=== PATIENT | female | born 1980 | race African-American/Black ===

== ENCOUNTER 2019-10-13 13:51 | Inpatient (IN) | payer SELFPAY ==
[~2019-10-13] VITALS: Ht 172.7 cm; Wt 96.4 kg
--- NOTE | ~2019-10-13 | OP ---
PATIENT NAME: MARIO ALBERTO IQBAL MEDICAL RECORD: [id number] :84 LOCATION:D.M2 D.2126 ADMISSION DATE:10/13/19 SURGEON: SUYAPA MARRUFO MD DATE OF OPERATION: 10/14/2019 PROCEDURES: 1. PTCA stent LAD. 2. PTCA stent RCA. 3. IFR LAD. 4. Left heart catheterization. 5. Selective coronary angiography. 6. Left ventriculogram. INDICATION: Non-Q-wave myocardial infarction. PROCEDURE IN DETAIL: After informed consent was obtained and after detailed explanation of risks, benefits as well as alternative therapies, the patient elected to proceed with angiogram and angioplasty. The right femoral area was prepped and draped in normal sterile fashion. Right femoral artery was cannulated via modified Seldinger technique with placement of 6-Eritrean sheath. All catheters exchanged through this sheath. FINDINGS: Left ventriculogram was performed in standard 30-degree JONES view, reveals good cardiac wall motion, ejection fraction is 30%. SELECTIVE CORONARY ANGIOGRAPHY: 1. Left main is with no significant angiographic disease. 2. Left anterior descending has 80% stenosis at the proximal vessel. An IFR is abnormal. 3. Left circumflex has moderate irregularities, but no flow-limiting stenosis. 4. Right coronary artery has 90% to 95% stenosis in the mid vessel. PTCA STENT OF THE RCA: The stent used was 3.0 x 15 mm [place]. Result was 0% residual stenosis. TOLL LINE REPAIRER STENT OF THE LAD: The stent used was a 3.0 x 8 mm [place]. Result was 0% residual stenosis. OVERALL IMPRESSION: Successful percutaneous transluminal angioplasty stent of LAD and RCA, both going from 80% to 95% initial stenosis to 0% residual. TRANSINT:[id number] Voice Confirmation ID: [id number] DOCUMENT ID: [id number] SUYAPA MARRUFO MD CC: [id number] DICTATION DATE: 10/14/19 1624 MARKET RESEARCH SPECIALIST: 10/15/19 0232 DIS IN 10/14/19 [id number] [place] [address]
--- NOTE | ~2019-10-13 | EC ---
PATIENT:MARIO ALBERTO IBQAL DATE OF SERVICE: 10/13/19 SEX: F MEDICAL RECORD: [id number] DATE OF : 84 LOCATION:D. D.212 AGE OF PATIENT: 39 ADMISSION DATE: 10/13/19 REFERRING PHYSICIAN: INTERPRETING PHYSICIAN: SUYAPA COLIN MD ECHOCARDIOGRAM REPORT ECHO CHARGES 4 ECHO COMPLETE Date: 10/14/19 CLINICAL DIAGNOSIS: [place] ECHOCARDIOGRAPHIC MEASUREMENTS (adult normal given) AC root (d.<3.7cm) 2.8 cm LV Septum d (<1.2 cm> 1.4 cm Valve Excursion 1.3 cm LV Septum (systole) 1.5 cm Left Atria (s.<4.0cm> 4.7 cm LVPW d(<1.2cm) 1.7 cm RV (d.<2.3cm) 3.3 cm LVPW (sytole) 1.8 cm LV diastole(<5.6CM) 4.9 cm MV E-F(>70mm/sec) cm LV systole 3.7 cm LVOT Diameter 2.0 cm MV exc.(>10mm) 1.9 cm Est.ejection fraction (50-75%) % DOPPLER: LVIT cm/sec A 121.0cm/sec E cm/sec LA cm/sec RVSP 23 mmHg LVOT 97 cm/sec AOP1/2T m/s Asc. Ao 136 cm/sec RVOT 75 cm/sec RA cm/sec PA 108 cm/sec AV Gradient Peak 7.42 mmHg AV Mean 4.13 mmHg AV Area 2.2 cm MV Gradient Peak 8.62 mmHg MV Mean 2.90 mmHg MV Area cm COMMENTS: Catering Manager: Milan MIR Latent Fingerprint Examiner: 1 Dr. Colin TAPE# PACS Pericardial Effusion N DATE OF SERVICE: ECHOCARDIOGRAM FINDINGS: 1. Left ventricular chamber size is within normal limits. Left ventricular systolic function is normal. Overall ejection fraction estimated at 50-55%. 2. Left atrium is enlarged at 4.7 cm. Right atrium and right ventricular chamber sizes are as well mildly dilated. 3. Valvular structures have normal structure and motion. ECHOCARDIOGRAM REPORT [id number] MARIO ALBERTO IQBAL 4. Doppler interrogation reveals [id number] mitral regurgitation, mild tricuspid regurgitation, no other valvular insufficiency or stenosis. Pulmonary systolic pressure estimated at 23 mmHg. 5. No evidence of pericardial effusion or left ventricular thrombus. TRANSINT:[id number] Voice Confirmation ID: [id number] DOCUMENT ID: [id number] SUYAPA COLIN MD CC: [id number] DICTATION DATE: 10/14/19 1158 RAYON WINDER: 10/14/19 1601 ADM IN [facility] [address] [place] [address]
--- NOTE | ~2019-10-13 | DS ---
PATIENT:MARIO ALBERTO LOERA :84 MEDICAL RECORD: [id number] DISCHARGE SUMMARY ADMISSION DATE: 10/13/19 DISCHARGE DATE: 10/14/19 DATE OF DISCHARGE: 10/14/2019. DIAGNOSES: 1. Non-Q-wave myocardial infarction. 2. Coronary artery disease. 3. Percutaneous transluminal coronary angioplasty stent left anterior descending and right coronary artery this admission. 4. Hypertension. 5. Hyperlipidemia. HOSPITAL COURSE: Mrs. Loera presents with non-Q-wave myocardial infarction, found to have critical disease of the RCA and significant disease of the LAD, underwent successful PTCA stent of both territories, found also to be markedly hypertensive, was started on diltiazem 240 mg every day and Toprol ER 200 mg every day along with aspirin, Plavix and Pravachol. Will follow up with [facility] in [facility] month. TRANSINT:[id number] Voice Confirmation ID: [id number] DOCUMENT ID: [id number] SUYAPA MARRUFO MD CC: [id number] DICTATION DATE: 10/14/19 1625 REFINERY OPERATOR REFORMING UNIT: 10/15/19 0810 DIS IN 10/14/19 [facility] [address] [place] [address]
--- NOTE | ~2019-10-13 | HEMODYNAMI ---
PATIENT:MARIO ALBERTO IQBAL MEDICAL RECORD: [id number] : 84 LOCATION[facility] D.2126 [id number] ADMISSION DATE: 10/13/19 Generatedon:10/14/201913:11 Patient name: MARIO ALBERTO IQBAL Patient #: [id number] SSN: : 1980 Date of study: 10/14/2019 Page: Of Hemodynamic Procedure Report Patient Data Patient Demographics Procedure consent was obtained First Name: MARIO ALBERTO Gender: Female Last Name: FARIDA : 1980 Middle Initial: MANOJ Age: 39 year(s) Patient #: [id number] Race: Black Additional ID: [id number] Contact details [address]: [address] [place] [address] State: [place] City: [place] Zip code: [address] Past Medical History Allergies: No known allergies Admission Admission Data Admission Date: 10/13/2019 Admission Time: 17:47 Admit Source: Other Room #: D.2126 Lab Results Lab Result Date: 10/14/2019 Lab Result Time: 0:00 Biochemistry Name Units Result Min Max BUN mg/dl 14 --(--*-)-- 7 18 Creatinine mg/dl 0.7 --(*---)-- 0.6 1.3 CBC Name Units Result Min Max Hemoglobin g/dl 10.2 *-(----)-- 13.5 17.5 Procedure Procedure Types Cath Procedure Diagnostic Procedure LHC LHC w/Coronaries FFR/IVUS FFR Initial Sedation Charges Moderate Sedation up to 15 minutes PCI Procedure Coronary Stent Coronary Stent Initial x2 Procedure Description Procedure Date Procedure Date: 10/14/2019 Procedure Start Time: 12:43 Procedure End Time: 13:04 Procedure Staff Name Function Fabrizio Colin MD Performing Physician Starr May RN Nurse Nellie Shipman RT Scrub Benjamin Waller RT Monitor Nabeel Esqueda RN Truss Driver Helper Procedure Data Cath Procedure Fluoroscopy Diagnostic fluoroscopy Total fluoroscopy Time: 4.8 time: 4.8 min min Diagnostic fluoroscopy Total fluoroscopy dose: dose: 531.34 mGy 531.34 mGy Contrast Material Contrast Material Type Amount (ml) Isovue 370 136 Entry Location Entry Primary Successful Side Size Upsize Upsize Entry Closure Succes sful Closure Location (Fr) 1 (Fr) 2 (Fr) Remarks Device Remarks Femoral Right 5 Fr 6 Fr Exoseal artery Short Diagnostic catheters Device Type Used For End Catheter Placement MULTIPACK Pigtail 5 Fr LV Angiography catheter MULTIPACK JL 4.0 5Fr Left Coronary catheter Angiography MULTIPACK 3DRC 5Fr Right Coronary catheter Angiography Procedure Complications No complications Procedure Medications Medication Administration Route Dosage Oxygen etCO2 Nasal cannula 2 l/min Lidocaine 2% added to field 20 Heparin Flush Bag added to field 2 bags (1000units/500ml NS) 0.9% NaCl I.V. 100 ml/hr Versed I.V. 2 mg Fentanyl I.V. 100 mcg Versed I.V. 2 mg Fentanyl I.V. 100 mcg Lopressor I.V. 5 mg Heparin Bolus I.V. 4000 units Integrilin (Bolus I.V. 8.5 ml 2mg/ml) Lopressor I.V. 5 mg Plavix P.O. 600 mg Hemodynamics Rest HGB: 10.2 (g/dl) Heart Rate: 100 (bpm) Snapshots Pre Cath Intra NCS Post Cath Vital Signs Time Heart Resp SPO2 etCO2 NIBP (mmHg) Rhythm Pain Sedation Rate (ipm) (%) (mmHg) Status Level (bpm) 12:11:44 101 39 100 24.8 179/116(145) NSR (Missing) 10(A) 12:16:09 100 32 100 24.8 174/109(144) NSR (Missing) 10(A) 12:20:33 100 36 100 21.8 171/112(146) NSR (Missing) 10(A) 12:24:55 99 39 99 17.2 171/108(135) NSR (Missing) 10(A) 12:29:15 98 33 94 23.3 170/112(136) NSR (Missing) 10(A) 12:33:31 98 30 96 21 157/102(125) NSR (Missing) 10(A) 12:37:49 96 30 98 25.5 159/103(132) NSR (Missing) 10(A) 12:42:05 96 29 97 25.5 163/104(123) NSR (Missing) 10(A) 12:46:17 95 24 94 32.3 159/105(118) NSR (Missing) 9(A) 12:50:31 97 20 95 34.5 162/105(126) NSR (Missing) 9(A) 12:54:47 87 19 96 33.8 152/104(124) NSR (Missing) 9(A) 12:59:01 95 22 95 33.8 156/103(121) NSR (Missing) 9(A) 13:03:17 93 23 97 31.5 159/96(116) NSR (Missing) 10(A) Medications Time Medication Route Dose Verified Delivered Reason Notes Effectiveness by by 12:25:04 Oxygen etCO2 2 Fabrizio Fabrizio used for Nasal l/min Dixie Colin MD procedure cannula 12:25:26 Lidocaine 2% added 20ml Fabrizio Fabrizio for local to vial Dixie Colin MD anesthetic field 12:25:32 Heparin Flush added 2 Fabrizio Fabrizio used for Bag to bags Dixie Colin MD procedure (1000units/500ml field NS) 12:25:42 0.9% NaCl I.V. 100 Fabrizio Buffie Per physician ml/hr Dixie Esqueda RN 12:43:10 Versed I.V. 2 mg Fabrizio Buffie for sedation Dixie Esqueda RN 12:43:17 Fentanyl I.V. 100 Fabrizio Buffie for sedation mcg Dixie Esqueda RN 12:45:54 Versed I.V. 2 mg Fabrizio Buffie for sedation Dixie Esqueda RN 12:45:57 Fentanyl I.V. 100 Fabrizio Buffie for sedation mcg Dixie Esqueda RN 12:47:44 Lopressor I.V. 5 mg Fabrizio Buffie Per physician Dixie Esqueda RN 12:50:29 Heparin Bolus I.V. 4000 Fabrizio Lainezie for verif ied units Dixie Esqueda RN anticoagulation with dr colin 12:52:06 Integrilin I.V. 8.5 Fabrizio Buffie for waste d (Bolus 2mg/ml) ml Dixie Esqueda RN antiplatelet 1.5 ml therapy of vial 12:53:40 Lopressor I.V. 5 mg Fabrizio Lees Per physician Dixie Esqueda RN 13:09:44 Plavix P.O. 600 Fabrizio Lees for mg Dixie Esqueda RN antiplatelet therapy Procedure Log Time Note 12:44:00 A 5 Fr sheath was inserted into the Right Femoral artery 18:40:47 mLAD lesion measured at .33 with IFR 18:40:47 6 Fr EBU 3.5 SH guide catheter was inserted over the wire 11:42:22 Admit Source: Other 11:42:59 Procedure Status Elective Heart Cath (OP). 11:43:07 Benjamin Waller RT(R) sent for patient. Start room use. 12:04:16 Time tracking: Regular hours (M-F 7:00 - 5:00) 12:04:21 Plan of Care:Hemodynamics will remain stable., Cardiac rhythm will remain stable., Comfort level will be maintained., Respiratory function will remain adequate., Patient/ family verbilizes understanding of procedure., Procedure tolerated without complication., Recovers from procedure without complications.. 12:04:27 Patient received from PCU to CCL 3 Alert and oriented. Tansferred to table in Supine position. 12:04:30 Signed procedure consent form obtained from patient. 12:04:30 Warm blankets applied, and glory hugger turned on for patient comfort. 12:04:31 Correct patient and procedure confirmed by team. 12:04:31 ECG and BP/O2 sat monitors applied to patient. 12:10:34 Baseline sample Acquired. 12:10:34 Vital chart was started 12:10:45 Rhythm: sinus tachycardia 12:10:46 Full Disclosure recording started 12:11:15 H&P Date Dictated: 10/13/2019 Within 30 days and on chart.. 12:11:16 Pre-procedure instructions explained to patient. 12:11:17 Pre-op teaching completed and patient verbalized understanding. 12:11:18 Family in patients room. 12:11:23 Patient NPO since Midnight. 12:11:31 Patient allergic to No known allergies 12:11:34 Is the patient allergic to Iodine/contrast media? No. 12:11:37 Is patient on blood thinner?No 12:11:39 Patient diabetic? No. 12:11:41 ----Pre-sedation anethsthesia assessment.---- 12:11:44 Previous problem with sedation/anesthesia? No ? 12:11:47 Snore? Yes 12:11:48 Sleep apnea? No 12:11:51 Deviated septum? No 12:11:52 Opens mouth fully? Yes 12:11:54 Sticks out tongue? Yes 12:11:56 Airway obstruction? No ? 12:12:00 Dentures? No ? 12:12:05 Pre procedure: right dorsailis pedis pulse 2+ Normal; easily identifiable; not easily obliterated 12:12:09 Modified Vivek's test Ulnar > 7 seconds. 12:12:12 Patient pain scale 0/10 ?. 12:12:19 IV patent on arrival in left antecubital with 0.9% NaCl at [facility]. 12:: Lab Result : BUN 14 mg/dl 12:: Lab Result : Creatinine 0.7 mg/dl 12:: Lab Result : Hemoglobin 10.2 g/dl 12:13:25 Lab results completed and on chart. 12:13:31 Risk of Mortality: 0.1 12:13:59 Risk of blood transfusion: 4.6 12:14:03 Risk of PIERRE: 1.4 12:14:07 Right Radial & Right Groin area was prepped with chlora-prep and draped in sterile fashion 12:14:08 Alarms reviewed by R. N. 12:14:08 Sharps counted by scrub and verified by R.N. 12:25:04 Oxygen 2 l/min etCO2 Nasal cannula was administered by Fabrizio Colin MD; used for procedure; Verbal order read back and verified. 12:25:26 Lidocaine 2% 20ml vial added to field was administered by Fabrizio Colin MD; for local anesthetic; Verbal order read back and verified. 12:25:32 Heparin Flush Bag (1000units/500ml NS) 2 bags added to field was administered by Fabrizio Colin MD; used for procedure; Verbal order read back and verified. 12:25:42 0.9% NaCl 100 ml/hr I.V. was administered by Nabeel Esqueda RN; Per physician; Verbal order read back and verified. 12:41:14 Zero performed for pressure channel P1 12:42:07 Physician arrived 12:42:07 --------ALL STOP TIME OUT------ 12:42:08 Final Timeout: patient, procedure, and site verified with staff and physician. All members of the team are in agreement. 12:42:13 Right groin site verified by team. 12:42:16 Fire Safety Assessment: A--An alcohol-based skin anteseptic being used preoperatively., C--Open oxygen or nitrous oxide is being used., D--An ESU, laser, or fiber-optic light is being used. 12:42:19 Physical assessment completed. ASA score P 2 - A patient with mild systemic disease as per Fabrizio Colin MD. 12:42:34 1) 90+ Normal kidney functon but urine findings or structural abnormalities or genetic trait point to kidney disease. 12:43:10 Versed 2 mg I.V. was administered by Nabeel Esqueda RN; for sedation; Verbal order read back and verified. 12:43:13 Maximum allowable contrast dose (3.7 X eGFR X 0.75)249.75 ml. 12:43:17 Fentanyl 100 mcg I.V. was administered by Nabeel Esqueda RN; for sedation; Verbal order read back and verified. 12:43:20 Sedation plan: IV Moderate Sedation Medication:Versed, Fentanyl 12:43:43 Procedure started. 12:43:45 Use device set Femoral Dx 12:43:46 ACIST Syringe (58444) opened to sterile field. 12:43:46 Bag Decanter (2002S) opened to sterile field. 12:43:47 Medline Cath Pack ([id number]) opened to sterile field. 12:43:48 ACIST Hand Control (30220) opened to sterile field. 12:43:48 ACIST Manifold (43023) opened to sterile field. 12:43:49 DIAGNOSTIC Multipack 5Fr catheter set (OQ6143) opened to sterile field. 12:43:50 Tegaderm 4 x 4 (1626W) opened to sterile field. 12:43:54 SHEATH 5FR [place] (SQL075) opened to sterile field. 12:43:55 EMERALD Guide Wire (953-132) opened to sterile field. 12:43:59 Local anesthetic to right femoral artery with Lidocaine 2% by Fabrizio Colin MD.INITIAL ACCESS ONLY 12:44:07 A MULTIPACK Pigtail 5 Fr catheter was advanced over the wire and used for LV Angiography. 12:45:29 LV angiography performed. 12:45:35 LV gram done using JONES 12:45:48 EF : 50 % 12:45:51 Catheter removed. 12:45:54 Versed 2 mg I.V. was administered by Nabeel Esqueda RN; for sedation; Verbal order read back and verified. 12:45:56 A MULTIPACK JL 4.0 5Fr catheter was advanced over the wire and used for Left Coronary Angiography. 12:45:57 Fentanyl 100 mcg I.V. was administered by Nabeel Esqueda RN; for sedation; Verbal order read back and verified. 12:46:00 LCA angiography performed. 12:47:44 Lopressor 5 mg I.V. was administered by Nabeel Esqueda RN; Per physician; Verbal order read back and verified. 12:48:13 Catheter removed. 12:48:29 A MULTIPACK 3DRC 5Fr catheter was advanced over the wire and used for Right Coronary Angiography. 12:48:33 RCA angiography performed. 12:49:08 Catheter removed. 12:49:24 GUIDE 6FR EBU 3.5 SH catheter ([id number]) opened to sterile field. 12:50:29 Heparin Bolus 4000 units I.V. was administered by Nabeel Esqueda RN; for anticoagulation; verified with dr colin Verbal order read back and verified. 12:51:44 Sheath upsized to a 6 Fr Short. 12:51:55 Pre PCI Site: [place] mLAD has ?% stenosis. 12:52:06 Integrilin (Bolus 2mg/ml) 8.5 ml I.V. was administered by Nabeel Esqueda RN; for antiplatelet therapy; wasted 1.5 ml of vial Verbal order read back and verified. 12:52:10 FFR/IVUS 12:52:12 FFR/IFR wire advanced. 12:53:40 Lopressor 5 mg I.V. was administered by Nabeel Esqueda RN; Per physician; Verbal order read back and verified. 12:55:29 Place stent Inflation Number: 1 A OSWALDO RX 3.0 x 08 stent ([id number]) was prepped and advanced across the Prox LAD 80. The stent was deployed at 13 JUAN MIGUEL for 0:12 (min:sec) . 12:56:00 Wire removed. 12:56:11 Stent catheter was removed intact over wire. 12:56:13 Guide catheter removed. 12:56:34 6 Fr AR 1 SH guide catheter was inserted over the wire 12:58:03 CPTES wire advanced. 12:59:34 Procedure type changed to Cath procedure, Diagnostic procedure, LHC, LHC w/Coronaries, FFR/IVUS, FFR Initial, Sedation Charges, Moderate Sedation up to 15 minutes, PCI procedure, Coronary Stent, Coronary Stent Initial x2 12:59:54 Place stent Inflation Number: 1 A OSWALDO RX 2.5 x 22 stent ([id number]) was prepped and advanced across the Dist RCA 90. The stent was deployed at 15 JUAN MIGUEL for 0:24 (min:sec) . 13:00:03 Inflation number: 2 The stent balloon was then re-inflated across the Dist RCA to 5 JUAN MIGUEL for 0:07 (min:sec) . 13:00:12 Stent catheter was removed intact over wire. 13:00:13 Wire removed. 13:00:14 Guide catheter removed. 13:00:47 Sheath removed intact; hemostasis achieved with Exoseal to the Right Femoral artery. 13:00:50 Procedure ended.(Physican Out) 13:00:59 Fluoroscopy time 04.80 minutes. 13:01:07 Flurop Dose total: 531.34 13:01:07 Fluoroscopy dose: 531.34 mGy 13:01:15 Dose Area Product 3263.23 mGy/cm. 13:01:21 Contrast amount:Isovue 370 136ml. 13:01:23 Maximum allowable dose exceeded? No. 13:01:24 Sharps counted by scrub and verified by R.N. 13:01:27 Insertion/operative site no bleeding no hematoma. 13:01:30 Post-op/insertion site Right Femoral artery dressed using a 4 x 4 and Tegaderm. 13:01:32 Post right femoral artery:stable 13:01:34 Post Procedure Pulses reassessed and unchanged 13:01:38 Post procedure: right dorsailis pedis pulse 2+ Normal; easily identifiable; not easily obliterated. 13:01:40 Post-procedure physical assessment completed. ASA score P 2 - A patient with mild systemic disease as per Fabrizio Colin MD. 13:01:44 Post procedure rhythm: unchanged. 13:01:47 Post procedure instruction explained to patient.Patient verbalizes understanding. 13:01:50 Procedure and supply charges have been captured, reviewed, submitted and are correct. 13:02:02 EXOSEAL 6Fr (EX600) opened to sterile field. 13:02:03 CHOICE PT Extra Support 182cm wire ([id number]) opened to sterile field. 13:02:04 GUIDE 6FR [place] 1.0 SH catheter ([id number]) opened to sterile field. 13:02:05 SHEATH 6FR [place] (LPM956) opened to sterile field. 13:02:06 INFLATOR Merit BasixCompak (PM6913) opened to sterile field. 13:02:07 [place] Verrata Plus pressure wire (32201U) opened to sterile field. 13:02:15 Procedure Complication : No complications 13:04:19 Vital chart was stopped 13:04:25 [facility] Findings: MVD- MD will discuss options w/ pt 13:04:28 [facility] Findings: MVD- PCI performed (see procedure note) 13:04:29 Operative report dictated upon procedure completion. 13:04:30 See physician's report for complete and final results. 13:04:32 Report given to PCU. 13:04:36 Patient transfered to PCU with Bed. 13:04:38 Procedure ended. 13:04:38 Full Disclosure recording stopped 13:04:48 ACC-PCI Only Patient was given prescriptions, or instructed by Fabrizio Colin MD to start/continue the following medications upon discharge: Plavix 13:08:55 ACT drawn and resulted at 263 seconds. (normal therapeutic range 180-240 seconds). 13:09:44 Plavix 600 mg P.O. was administered by Nabeel Esqueda RN; for antiplatelet therapy; Verbal order read back and verified. 13:10:37 End room use (Document Last) Intervention Summary Intervention Notes Time ActionType Lesion and Equipment Used Action# Pressure Duration Attributes 12:55:29 Place stent Prox LAD OSWLADO RX 3.0 x 1 13 00:12 08 stent ([id number]) 12:59:54 Place stent Dist RCA OSWALDO RX 2.5 x 1 15 00:24 22 stent ([id number]) 13:00:03 Reinflate Dist RCA OSWALDO RX 2.5 x 2 5 00:07 stent 22 stent balloon ([id number]) Device Usage Item Name Manufacture Quantity Catalog Number Hospital Part Current Minimal Lot# / Charge Number Stock Stock Serial# Code ACIST Syringe Acist 1 35576 617911 808256 062178 20 (00952) Medical Systems Inc Bag Decanter Microtek 1 957368 19081 340436 5 () Medical Inc. Medline Cath Medline 1 [id number] 685246 51492 479966 5 Pack ([id number]) ACIST Hand Acist 1 49545 816092 190252 347609 5 Control Medical (18846) Systems Inc ACIST Manifold Acist 1 79731 898592 666782 466106 5 (55768) Medical Systems Inc DIAGNOSTIC Cardinal 1 LM8657 183866 07029 090258 30 Multipack 5Fr Health catheter set (MK3344) Tegaderm 4 x 4 3M 1 1626W 928019 608426 655570 5 (1626W) SHEATH 5FR Terumo 1 MLQ207 754971 302881 810731 5 [place] (ANP762) EMERALD Guide Cardinal 1 502-455 638357 608887 166873 5 Wire (502-455) Health MULTIPACK Cardinal 1 136548 5 Pigtail 5 Fr Health catheter MULTIPACK JL Cardinal 1 598630 5 4.0 5Fr Health catheter MULTIPACK 3DRC Cardinal 1 490568 5 5Fr catheter Health GUIDE 6FR EBU Medtronic 1 [id number] 374790 53409 137519 1 3.5 SH catheter ([id number]) OSWALDO RX 3.0 x Medtronic 1 [id number] 555481 5304074 516095 5 [id number] 08 stent ([id number]) OSWALDO RX 2.5 x Medtronic 1 [id number] 250085 9170626 150343 5 [id number] 22 stent ([id number]) EXOSEAL 6Fr Cardinal 1 EX600 650534 954293 123143 10 (EX600) Health CHOICE PT [place] 1 [id number] 200423 267018 207911 5 Extra Support Scientific 182cm wire ([id number]) GUIDE 6FR [place] Medtronic 1 [id number] 762990 03007 966839 1 1.0 SH catheter ([id number]) SHEATH 6FR Terumo 1 RMZ717 401792 603303 549669 40 [place] (YKV852) INFLATOR Merit Merit 1 RQ6122 051935 179805 540521 [address] [facility] [place] [place] (VA0943) [place] 1 [id number] 478231 297198283 053940 5 Verrata Plus pressure wire (22417T) Signature Audit [place] Stage Time Signature Unsigned Intra-Procedure 10/14/2019 Benjamin Waller RT(R) 1:07:04 PM Intra-Procedure 10/14/2019 Nabeel Esqueda RN 1:07:59 PM Intra-Procedure 10/14/2019 Fabrizio Colin 1:11:03 PM [place] [id number] [place] [address]
[2019-10-13 00:30] VITALS: BP 149/68
[~2019-10-13 13:51] MED LIST: METHYLDOPA500 MG PO; PRENATAL COMPLE1 TAB PO
[2019-10-13 15:02] LABS: BASOPHILS 0.4 % (0-2); HEMATOCRIT 33.5 % (36.0-48.0); HEMOGLOBIN 10.2 g/dL (12-16); IMMATURE GRANULOCYTES 0.1 % (0-5); LYMPHOCYTES 48.2 % (15-50); MCH 23.8 pg (26.0-34.0); MCHC 30.4 g/dL (31.0-37.0); MCV 78.3 fL (80.0-100.0); MEAN PLATELET VOLUME 9.5 fL (7.4-10.4); MONOCYTES 10.1 % (2-11); NEUTROPHILS 39.2 % (40-80); RBC 4.28 10x6/uL (4.00-5.40); RDW 16.6 % (11.5-14.5); WBC 7.4 10x3/uL (4.8-10.8)
[2019-10-13 15:05] LABS: PLATELET COUNT 303 10x3/uL (130-400)
[2019-10-13 15:22] LABS: APTT 28.5 SECONDS (22.8-39.4); INR 1.04 (0.85-1.17); PROTIME 13.5 SECONDS (11.6-15.0)
[2019-10-13 15:23] LABS: CALC OSMOLALITY 283 mosm/kg (275-300); CALCIUM 9.1 mg/dL (8.5-10.1); CARBON DIOXIDE 27.5 mmol/L (21.0-32.0); CHLORIDE - SERUM 105 mmol/L (98-107); CREATININE - SERUM 0.7 mg/dL (0.6-1.3); D-DIMER-QUANTITATIVE 0.74 ug/mLFEU (0.20-0.54); GLUCOSE 98 mg/dL (74-106); POTASSIUM - SERUM 3.6 mmol/L (3.5-5.1); SODIUM 142 mmol/L (136-145); UREA NITROGEN 14 mg/dL (7-18); eGFR NON AFRICAN AMERICAN > 90 mL/min (90-120)
[2019-10-13 15:53] LABS: ALBUMIN 3.3 g/dL (3.4-5.0); ALKALINE PHOSPHATASE 77 U/L (46-116); ALT (SGPT) 22 U/L (10-68); BILIRUBIN - TOTAL 0.22 mg/dL (0.2-1.3); CKMB 2.2 U/L (0.0-3.6); CREATINE KINASE 81 UL (21-215); MAGNESIUM - SERUM 1.7 mg/dL (1.8-2.4); PROTEIN - SERUM 7.4 g/dL (6.4-8.2)
[2019-10-13 16:00] LABS: TROPONIN-I 0.402 ng/mL (0.000-0.060)
[2019-10-13 16:07] LABS: HCG SERUM NEGATIVE (NEGATIVE)
[2019-10-13 16:21] LABS: UDS - AMPHET NEGATIVE QUAL (NEGATIVE); UDS - BARB NEGATIVE QUAL (NEGATIVE); UDS - BENZO NEGATIVE QUAL (NEGATIVE); UDS - COCAINE NEGATIVE QUAL (NEGATIVE); UDS - OPIATE NEGATIVE QUAL (NEGATIVE); UDS - PCP NEGATIVE QUAL (NEGATIVE); UDS - THC NEGATIVE QUAL (NEGATIVE)
[2019-10-13 16:25] LABS: APPEARANCE CLEAR (CLEAR); BILIRUBIN NEGATIVE (NEGATIVE); COLOR YELLOW (YELLOW); GLUCOSE NEGATIVE (NEGATIVE); KETONE NEGATIVE (NEGATIVE); NITRITE NEGATIVE (NEGATIVE); PROTEIN NEGATIVE (NEGATIVE); UROBILINOGEN NORMAL (NORMAL)
[2019-10-13 19:29] VITALS: BP 170/96
--- NOTE | 2019-10-13 20:41 | NUR ---
RECIEVED TO ROOM 2125 FROM ER VIA . PT A&O. RESPERATIONS EVEN ON RA. VITALS STABLE. IV TO LEFT AC SL, SITE CLEAN AND DRY. MED REC AND HISTORY OBTAINED. FAMILY AT BED SIDE, BED LOW, CL IN REACH.
[2019-10-14 04:55] VITALS: Ht 172.7 cm; Wt 96.4 kg
--- NOTE | 2019-10-14 06:21 | NUR ---
I have reviewed this patient and I concur with the Shift Assessment completed by the Licensed Practical Nurse today this shift.
--- NOTE | 2019-10-14 07:50 | NUR ---
ASSESSMENT DONE. DENIES NEEDS
[2019-10-14 10:55] VITALS: BP 151/85
--- NOTE | 2019-10-14 12:00 | NUR ---
TO NEUROLOGY PROFESSOR PER BED
--- NOTE | 2019-10-14 12:09 | NUR ---
I have reviewed this patient and I concur with the Shift Assessment completed by the Licensed Practical Nurse today this shift.
[2019-10-14] MEDS ORDERED: BAYER CHEWABLE81 MG PO (15:51)
[2019-10-14] MEDS ORDERED: PLAVIX75 MG PO (15:55)
[2019-10-14] MEDS ORDERED: PRAVACHOL40 MG PO (15:56)
[2019-10-14] MEDS ORDERED: TOPROL XL200 MG PO (15:56)
[2019-10-14] MEDS ORDERED: DILTIAZEM 24HR240 M4 (15:57)
--- NOTE | 2019-10-14 17:08 | MORECARE ---
CASE MANAGEMENT DISCHARGE SUMMARY PATIENT: MARIO ALBERTO IQBAL UNIT: [id number] ADM DATE: 10/13/19 AGE: 39 : [birth year] SEX: F ROOM/BED: D.2126 AUTHOR: ALYSSA PAZ PHYSICIAN: REFERRING PHYSICIAN: SUYAPA MARRUFO MD DATE OF SERVICE: 10/14/19 Discharge Plan Patient Name: MARIO ALBERTO IQBAL Facility: [facility]:[place] : 1980 Planned Disposition: Home Anticipated Discharge Date: 10/14/19 Discharge Date: Expected LOS: 1 Initial Reviewer: [email or web address] Initial Review Date: 10/14/2019 Generated: 10/14/19 6:07 pm DCPIA - Discharge Planning Initial Assessment Updated by [email or web address]: Reji Cisneros on 10/14/19 5:08 pm * Is the patient Alert and Oriented? Yes * How many steps to enter\exit or inside your home? * PCP NONE * Pharmacy [facility] [address] * Preadmission Environment Home with Family * ADLs Independent * Equipment None * Other Equipment [facility] - PREFERRED PROVIDER * List name and contact numbers for known caregivers / representatives who currently or will assist patient after discharge: CARMELA LOPEZ, SPOUSE, JACQUELINE IQBAL, MOTHER, * Verbal permission to speak to the caregivers and representatives has been obtained from the patient. Yes * Community resources currently utilized None * Please name any agencies selected above. NONE * Additional services required to return to the preadmission environment? No * Can the patient safely return to the preadmission environment? Yes * Has this patient been hospitalized within the prior 30 days at any hospital? No Patient Name: MARIO ALBERTO IBQAL Page [id number] at 1708 All edits/amendments must be made on the electronic document DICTATION DATE: 10/14/191706 MEDICAL TECHNICIAN ASSISTANT: MADINA 10/14/191706 RPT#: [id number] DC DATE: STATUS: ADM IN [facility] [address] [place] [address] END OF REPORT
--- NOTE | 2019-10-14 17:17 | MORECARE ---
CASE MANAGEMENT DISCHARGE SUMMARY PATIENT: MARIO ALBERTO IQBAL UNIT: [id number] ADM DATE: 10/13/19 AGE: 39 : [birth year] SEX: F ROOM/BED: D.7616 AUTHOR: BRANDI,DOC PHYSICIAN: REFERRING PHYSICIAN: SUYAPA MARRUFO MD DATE OF SERVICE: 10/14/19 Discharge Plan Patient Name: MARIO ALBERTO IBQAL Facility: [facility]:[place] : 1980 Planned Disposition: Home Anticipated Discharge Date: 10/14/19 Discharge Date: Expected LOS: 1 Initial Reviewer: [email or web address] Initial Review Date: 10/14/2019 Generated: 10/14/19 6:16 pm Comments DCP- Discharge Planning Updated by [email or web address]: Reji Cisneros on 10/14/19 4:[address] Patient Name: MARIO ALBERTO IQBAL Admission Status: ER Accout number: [id number] Admission Date: 10-13-2019 : 1980 Admission Diagnosis: Attending: ERNESTO MARRUFO Current LOS: 1 Anticipated DC Date: 10-14-2019 Planned Disposition: Home Primary Insurance: UNINSURED DISCOUNT PLAN Discharge Planning Comments: CM MET WITH PT IN ROOM TO DISCUSS DISCHARGE PLANNING AND NEEDS. PT REPORTS LIVING AT HOME INDEPENDENTLY WITH HER SPOUSE AND TWO CHILDREN. PT HAS NO MEDICAL EQUIPMENT AND NO OUTSIDE SERVICES ASSISTING IN THE HOME. CM DISCUSSED AVAILABILITY OF HOME HEALTH, REHAB SERVICES AND MEDICAL EQUIPMENT. PT DENIES DISCHARGE NEEDS, REPORTS HER MOTHER WILL PICK HER UP FOR DISCHARGE HOME. NEUROPHYSIOLOGIST NURSE NOTIFIED. CM PROVIDED [facility] INFORMATION AND PROVIDED [facility] DISCOUNT PRESCRIPTION CARD. PT HAS FILED FOR MEDICAID WITH THE HOSPITAL'S ASSISTANCE. Heel Molder: Reji Cisneros DCPIA - Discharge Planning Initial Assessment Updated by [email or web address]: Reji Cisneros on 10/14/19 5:08 pm * Is the patient Alert and Oriented? Yes * How many steps to enter\exit or inside your home? * PCP NONE * Pharmacy [facility] [address] * Preadmission Environment Home with Family * ADLs Independent * Equipment None * Other Equipment [facility] - PREFERRED PROVIDER * List name and contact numbers for known caregivers / representatives who currently or will assist patient after discharge: CARMELA LOPEZ, SPOUSE, JACQUELINE IQBAL, MOTHER, * Verbal permission to speak to the caregivers and representatives has been obtained from the patient. Yes * Community resources currently utilized None * Please name any agencies selected above. NONE * Additional services required to return to the preadmission environment? No * Can the patient safely return to the preadmission environment? Yes * Has this patient been hospitalized within the prior 30 days at any hospital? No Last DP export: 10/14/19 4:08 pm Patient Name: MARIO ALBERTO IQBAL Page [id number] at 1717 All edits/amendments must be made on the electronic document DICTATION DATE: 10/14/191715 CONTRACTS ATTORNEY: MADINA 10/14/191715 RPT#: [id number] DC DATE: STATUS: ADM IN [facility] [address] [place] [address] END OF REPORT
--- NOTE | 2019-10-14 17:59 | NUR ---
DC GIVEN TO PT
--- NOTE | 2019-10-14 18:22 | NUR ---
DC GIVEN TO PT
--- NOTE | 2019-10-14 18:25 | NUR ---
DC HOME PER PERSONAL CAR
== END 2019-10-14 18:25 | disposition home or self-care (01) | DRG 247 ==
LOC: D.ER 13:51 → D.M2 17:47
PROVIDERS: Family Medicine; ADMIT Internal Medicine Interventional Cardiology; ATTEND Internal Medicine Interventional Cardiology
PROC: B2111ZZ Fluoroscopy of Multiple Coronary Arteries using Low Osmolar Contrast (ICD-10-PCS; 2019-10-14)
PROC: B2151ZZ Fluoroscopy of Left Heart using Low Osmolar Contrast (ICD-10-PCS; 2019-10-14)
PROC: 4A033BC Measurement of Arterial Pressure, Coronary, Percutaneous Approach (ICD-10-PCS; 2019-10-14)
PROC: 027135Z Dilation of Coronary Artery, Two Arteries with Two Drug-eluting Intraluminal Devices, Percutaneous Approach (ICD-10-PCS; principal; 2019-10-14 11:43)
PROC: 4A023N7 Measurement of Cardiac Sampling and Pressure, Left Heart, Percutaneous Approach (ICD-10-PCS; 2019-10-14 11:43)
DX: I21.4 Non-ST elevation (NSTEMI) myocardial infarction (principal); F17.210 Nicotine dependence, cigarettes, uncomplicated; I25.10 Atherosclerotic heart disease of native coronary artery without angina pectoris; I10 Essential (primary) hypertension; E78.5 Hyperlipidemia, unspecified

== ENCOUNTER 2019-10-25 07:13 | Observation (INO) | payer SELFPAY ==
[~2019-10-25] VITALS: Ht 172.7 cm; Wt 92.5 kg
--- NOTE | ~2019-10-25 | OP ---
PATIENT NAME: MARIO ALBERTO IQBAL MEDICAL RECORD: [id number] :84 LOCATION:D.M2 D.2116 ADMISSION DATE:10/25/19 SURGEON: SUYAPA MARRUFO MD DATE OF OPERATION: 10/26/2019 PROCEDURES: 1. PTCA stent, left main. 2. PTCA stent, left circumflex. 3. PTCA stent, RCA. 4. IFR, left main. 5. IFR, RCA. 6. Left heart catheterization. 7. Selective coronary angiography. 8. Left ventriculogram. INDICATION: Angina and coronary artery disease. DESCRIPTION OF PROCEDURE: After informed consent was obtained and after a detailed description of the risks, benefits as well as alternative therapies, the patient elected to proceed with angiogram and angioplasty. The right femoral area was prepped and draped in normal sterile fashion. Right femoral artery was cannulated via modified Seldinger technique with placement of 6-Cymro sheath. All catheters exchanged through this sheath. FINDINGS: Left ventriculogram was performed in standard 30-degree JONES view reveals good cardiac wall motion and ejection fraction estimated 60%. SELECTIVE CORONARY ANGIOGRAPHY: 1. Left main has 80% stenosis of the previously unrecognized by the previous cardiac catheterization, IFR was significantly abnormal. 2. Left circumflex has 90% stenosis at the ostium. 3. The left anterior descending has a previously placed stent, this is widely patent with no significant restenosis. No disease elsewise of the LAD or its branches. 4. Right coronary has previously placed stents, these are widely patent; however, there is 70% stenosis after the previously placed stents and IFR was abnormal. PTCA STENT OF THE LEFT MAIN: The stent used was a 3.5 x 15 mm Gael. Result was 0% residual stenosis. PTCA STENT OF THE LEFT CIRCUMFLEX: The stent was used a 3.5 x 8 mm Bennett. Result was 0% residual stenosis. PTCA STENT OF THE RCA: The stent used was a 2.5 x 22 mm Gael. Result was 0% residual stenosis. OVERALL IMPRESSION: Successful percutaneous transluminal coronary angioplasty stent of the left main, left circumflex, and RCA all going from 70% to 80% initial stenosis to 0% residual. TRANSINT:[id number] Voice Confirmation ID: [id number] DOCUMENT ID: [id number] OPERATIVE REPORT [id number] IQBAL,LECSUYAPA JOY MD CC: [id number] DICTATION DATE: 10/26/19 0840 WOOD PREPARATION SUPERVISOR: 10/26/19 1146 ADM IN [facility] [address] [id number]
--- NOTE | ~2019-10-25 | DS ---
PATIENT:MARIO ALBERTO LOERA :84 MEDICAL RECORD: [id number] DISCHARGE SUMMARY ADMISSION DATE: 10/25/19 DISCHARGE DATE: 10/26/19 DATE OF DISCHARGE: 10/26/2019 INDICATION: 1. Unstable angina. 2. Coronary artery disease. PROCEDURES: 1. PTCA stent left main, left circumflex and RCA this admission. 2. Hypertension. 3. Hyperlipidemia. FINDINGS: Mrs. Loera presents with unstable anginal symptomatology, found to have abnormal IFR of the left main, abnormal IFR of the RCA, underwent successful percutaneous transluminal coronary angioplasty stent of the left main, left circumflex, and RCA, discharged home with no change in her medications as she is already on aspirin, Plavix, statin, and a beta-dontae. We will follow up with [facility] in 1 month. TRANSINT:[id number] Voice Confirmation ID: [id number] DOCUMENT ID: [id number] SUYAPA MARRUFO MD CC: [id number] DICTATION DATE: 10/26/19 0838 CV/CVN CV TSC SYSTEM OPERATOR: 10/27/19 0013 DIS IN 10/26/19 [id number] [place] [address]
--- NOTE | ~2019-10-25 | HEMODYNAMI ---
PATIENT:MARIO ALBERTO IQBAL MEDICAL RECORD: [id number] : 84 [id number] ADMISSION DATE: 10/25/19 Generatedon:10/26/20198:42 Patient name: MARIO ALBERTO IQBAL Patient #: [id number] SSN: [id number] : 1980 Date of study: 10/26/2019 Page: Of Hemodynamic Procedure Report Patient Data Patient Demographics Procedure consent was obtained First Name: MARIO ALBERTO Gender: Female Last Name: FARIDA : 1980 Middle Initial: MANOJ Age: 39 year(s) Patient #: [id number] Race: Black SSN: [id number] Additional ID: [id number] Contact details Address: [address] [place] [address] ROAD State: [place] City: [place] Zip code: [address] Past Medical History Allergies: No known allergies Admission Admission Data Admission Date: 10/25/2019 Admission Time: 10:08 Arrival Date: 10/26/2019 Arrival Time: 0:00 Admit Source: Other Insurance Payor: None Room #: D.2116 Height (in.): 68 BSA: 2.1 (m2) Height (cm.): 172.72 BMI: 32.3 (kg/m2) Weight (lbs.): 212.44 Weight (kg.): 96.36 Lab Results Lab Result Date: 10/26/2019 Lab Result Time: 0:00 Biochemistry Name Units Result Min Max BUN mg/dl 17 --(---*)-- 7 18 CK-MB ng/ml 0.8 --(*---)-- 0 3.6 Creatinine mg/dl 0.8 --(-*--)-- 0.6 1.3 eGFR ml/min 85.00097 -*(----)-- 90 120 NONAFRICAN Troponin l ng/ml 0.047 --(---*)-- 0 0.06 CBC Name Units Result Min Max Hematocrit % 33.7 *-(----)-- 42 54 Hemoglobin g/dl 10.1 *-(----)-- 13.5 17.5 Procedure Procedure Types Cath Procedure Diagnostic Procedure [facility] w/Coronaries FFR/IVUS FFR Initial FFR Additional Sedation Charges Moderate Sedation up to 30 minutes PCI Procedure Coronary Stent Coronary Stent Initial Coronary Stent Initial x2 Hemochron ACT Test Procedure Description Procedure Date Procedure Date: 10/26/2019 Procedure Start Time: 8:12 Procedure End Time: 8:40 Procedure Staff Name Function Fabriizo Colin MD Performing Physician Starr May RN Nurse Va Rosado RT Scrub Benjamin Waller RT Monitor Alanna Land RT Monitor Procedure Data Cath Procedure Fluoroscopy Diagnostic fluoroscopy Total fluoroscopy Time: 6 time: 6 min min Diagnostic fluoroscopy Total fluoroscopy dose: 884 dose: 884 mGy mGy Contrast Material Contrast Material Type Amount (ml) Isovue 300 144 Entry Location Entry Primary Successful Side Size Upsize Upsize Entry Closure Succes sful Closure Location (Fr) 1 (Fr) 2 (Fr) Remarks Device Remarks Femoral Right 5 Fr 6 Fr Exoseal artery Short Estimated blood loss: 10 ml Diagnostic catheters Device Type Used For End Catheter Placement MULTIPACK Pigtail 5 Fr LV Angiography catheter MULTIPACK JL 4.0 5Fr Left Coronary catheter Angiography MULTIPACK 3DRC 5Fr Right Coronary catheter Angiography Procedure Complications No complications Procedure Medications Medication Administration Route Dosage 0.9% NaCl I.V. 100 ml/hr Oxygen etCO2 Nasal cannula 2 l/min Lidocaine 2% added to field 20 Heparin Flush Bag added to field 2 bags (1000units/500ml NS) Versed I.V. 2 mg Fentanyl I.V. 50 mcg Versed I.V. 2 mg Fentanyl I.V. 50 mcg Plavix P.O. 75 mg Lopressor I.V. 5 mg Lopressor I.V. 5 mg Versed I.V. 2 mg Fentanyl I.V. 50 mcg Heparin Bolus I.V. 4000 units Hemodynamics Rest BSA: 2.1 (m2) HGB: 10.1 (g/dl) O2 Consumption: Estimated: 285.6 (ml/min) O2 Cons umption indexed: Estimated:136 (ml/min/m) Pre Cath Intra NCS Post Cath Vital Signs Time Heart Resp SPO2 etCO2 NIBP (mmHg) Rhythm Pain Sedation Rate (ipm) (%) (mmHg) Status Level (bpm) 7:56:34 [address] 0 (11) 10(A) , No pain 7:57:59 [address] 0 (11) 10(A) Exceeded , No pain 8:02:57 140 [address] 0 (11) 10(A) , No pain 8:07:26 114 14 99 38.2 172/104(137) ST 0 (11) 10(A) , No pain 8:11:42 96 22 100 37.5 142/94(111) NSR 0 (11) 10(A) , No pain 8:15:56 100 20 100 38.2 147/84(103) NSR 0 (11) 10(A) , No pain 8:20:08 99 20 100 40.5 133/80(99) NSR 0 (11) 10(A) , No pain 8:24:22 100 18 100 39.7 148/80(108) NSR 0 (11) 9(A) , No pain 8:28:34 101 20 100 39.8 151/89(114) NSR 0 (11) 9(A) , No pain 8:32:54 101 21 100 38.2 155/85(106) NSR 0 (11) 10(A) , No pain 8:37:16 97 20 100 39.8 148/88(110) NSR 0 (11) 10(A) , No pain Medications Time Medication Route Dose Verified Delivered Reason Notes Effectiveness by by 7:55:17 0.9% NaCl I.V. 100 Fabrizio Starr used for ml/hr Dixie May transportation superintendent 7:55:23 Oxygen etCO2 2 Fabrizio Starr used for Nasal l/min Dixie May procedure cannula RN 7:55:29 Lidocaine 2% added 20ml Fabrizio Dinh for local to vial Dixie Colin MD anesthetic field 7:55:33 Heparin Flush added 2 Fabrizio Fabrizio used for Bag to bags Dixie Colin MD procedure (1000units/500ml field NS) 7:55:39 Plavix P.O. 75 mg Fabrizio Starr for Dixie May antiplatelet RN therapy 8:02:13 Versed I.V. 2 mg Fabrizio Starr for sedation Dixie May RN 8:02:23 Fentanyl I.V. 50 Fabrizio Starr for sedation mcg Dixie May RN 8:06:22 Lopressor I.V. 5 mg Fabrizio Starr Per physician Dixie May RN 8:07:30 Versed I.V. 2 mg Fabrizio Starr for sedation Dixie May RN 8:07:34 Fentanyl I.V. 50 Fabrizio Starr for sedation mcg Dixie May RN 8:11:38 Lopressor I.V. 5 mg Fabrizio Starr Per physician Dixie May RN 8:15:32 Versed I.V. 2 mg Fabrizio Starr for sedation Dixie May RN 8:15:35 Fentanyl I.V. 50 Fabrizio Starr for sedation mcg Dixie May RN 8:16:02 Heparin Bolus I.V. 4000 Fabrizio Starr for verifi ed units Dixie May anticoagulation with Dr. WILL Colin Procedure Log Time Note 7:23:04 Informed consent obtained and on chart 7:: Arrival Date: 10/26/2019 12:00:00 AM 7:24:29 Admit Source: Other 7:24:50 Insurance Payor : None 7:24:58 Patient Height : 68 inches 7:25:04 Patient Weight : 212.44 lbs 7:26:01 Lab Result : Hemoglobin 10.1 g/dl 7:26:01 Lab Result : Hematocrit 33.7 % 7:26:01 Lab Result : eGFR NONAFRICAN 85.82788 ml/min 7:26:01 Lab Result : Troponin l 0.047 ng/ml 7:26:01 Lab Result : BUN 17 mg/dl 7:26:01 Lab Result : Creatinine 0.8 mg/dl 7:26:01 Lab Result : CK-MB 0.8 ng/ml 7:26:10 Diagnostic Cath Status : Urgent 7:40:31 Time tracking: Regular hours (M-F 7:00 - 5:00) 7:40:36 Plan of Care:Hemodynamics will remain stable., Cardiac rhythm will remain stable., Comfort level will be maintained., Respiratory function will remain adequate., Patient/ family verbilizes understanding of procedure., Procedure tolerated without complication., Recovers from procedure without complications.. 7:40:42 Procedure Status Urgent Heart Cath (IP). 7:40:56 ACC Patient presents with Stable Angina CCS Anginal Class 1--Ordinary physical activity does not cause angina, angina occurs with strenuos, rapid, or prolonged activity.. 7:41:01 Va Rosado RT(R) sent for patient. Start room use. 7:49:55 Patient received from Med II to CCL 2 Alert and oriented. Tansferred to table in Supine position. 7:49:57 Warm blankets applied, and glory hugger turned on for patient comfort. 7:49:57 Correct patient and procedure confirmed by team. 7:49:57 ECG and BP/O2 sat monitors applied to patient. 7:50:11 H&P Date Dictated: 10/25/2019 Within 30 days and on chart.. 7:50:13 Pre-procedure instructions explained to patient. 7:50:13 Pre-op teaching completed and patient verbalized understanding. 7:50:19 Family in waiting room. 7:50:21 Patient NPO since Midnight. 7:50:28 Patient allergic to No known allergies 7:50:31 Is the patient allergic to Iodine/contrast media? No. 7:50:34 Was the patient premedicated? Yes 7:54:45 Vital chart was started 7:55:17 0.9% NaCl 100 ml/hr I.V. was administered by Starr May RN; used for procedure; Verbal order read back and verified. 7:55:23 Oxygen 2 l/min etCO2 Nasal cannula was administered by Starr May RN; used for procedure; Verbal order read back and verified. 7:55:29 Lidocaine 2% 20ml vial added to field was administered by Fabrizio Colin MD; for local anesthetic; Verbal order read back and verified. 7:55:33 Heparin Flush Bag (1000units/500ml NS) 2 bags added to field was administered by Fabrizio Colin MD; used for procedure; Verbal order read back and verified. 7:55:39 Plavix 75 mg P.O. was administered by Starr May RN; for antiplatelet therapy; Verbal order read back and verified. 7:57:34 Is patient on blood thinner?Yes 7:57:38 ACC The patient was administered the following blood thiners within the last 24 hours: ACCPlavix 7:57:57 Patient diabetic? No. 7:58:00 ----Pre-sedation anethsthesia assessment.---- 7:58:03 Previous problem with sedation/anesthesia? No ? 7:58:06 Snore? No 7:58:09 Sleep apnea? No 7:58:10 Deviated septum? No 7:58:11 Opens mouth fully? Yes 7:58:12 Sticks out tongue? Yes 7:58:24 Airway obstruction? No ? 7:58:37 Dentures? No ? 7:58:41 Pre procedure: right dorsailis pedis pulse 2+ Normal; easily identifiable; not easily obliterated 7:58:49 Patient pain scale 2/10 CP. 7:58:59 IV patent on arrival in left antecubital with 0.9% NaCl at O. 7:59:22 Lab results completed and on chart. 7:59:29 Risk of Mortality: 0.2 7:59:35 Risk of blood transfusion: 3.3 7:59:40 Risk of PIERRE: 1.8 7:59:46 Right groin area was prepped with chlora-prep and draped in sterile fashion 7:59:48 Alarms reviewed by R. N. 7:59:49 Sharps counted by scrub and verified by R.N. 8:01:24 Physician arrived 8:01:24 --------ALL STOP TIME OUT------ 8:01:25 Final Timeout: patient, procedure, and site verified with staff and physician. All members of the team are in agreement. 8:01:27 Right groin site verified by team. 8:01:30 Fire Safety Assessment: A--An alcohol-based skin anteseptic being used preoperatively., C--Open oxygen or nitrous oxide is being used., D--An ESU, laser, or fiber-optic light is being used. 8:01:34 Physical assessment completed. ASA score P 2 - A patient with mild systemic disease as per Fabrizio Colin MD. 8:01:45 1) 90+ Normal kidney functon but urine findings or structural abnormalities or genetic trait point to kidney disease. 8:02:12 Maximum allowable contrast dose (3.7 X eGFR X 0.75)249.75 ml. 8:02:13 Versed 2 mg I.V. was administered by Starr May RN; for sedation; Verbal order read back and verified. 8:02:17 Sedation plan: IV Moderate Sedation Medication:Versed, Fentanyl 8:02:23 Fentanyl 50 mcg I.V. was administered by Starr May RN; for sedation; Verbal order read back and verified. 8:05:07 Use device set Femoral Dx 8:05:10 ACIST Syringe (51166) opened to sterile field. 8:05:11 Bag Decanter (2002S) opened to sterile field. 8:05:12 Medline Cath Pack ([id number]) opened to sterile field. 8:05:13 ACIST Hand Control (05663) opened to sterile field. 8:05:14 ACIST Manifold (14577) opened to sterile field. 8:05:14 DIAGNOSTIC Multipack 5Fr catheter set (IO0483) opened to sterile field. 8:05:17 SHEATH 5FR [place] ([id number]) opened to sterile field. 8:05:17 EMERALD Guide Wire (787-237) opened to sterile field. 8:06:22 Lopressor 5 mg I.V. was administered by Starr May RN; Per physician; Verbal order read back and verified. 8:07:30 Versed 2 mg I.V. was administered by Starr May RN; for sedation; Verbal order read back and verified. 8:07:34 Fentanyl 50 mcg I.V. was administered by Starr May RN; for sedation; Verbal order read back and verified. 8:11:38 Lopressor 5 mg I.V. was administered by Starr May RN; Per physician; Verbal order read back and verified. 8:12:03 Procedure started. 8:12:03 Full Disclosure recording started 8:12:06 Local anesthetic to right femoral artery with Lidocaine 2% by Fabrizio Colin MD.INITIAL ACCESS ONLY 8:12:13 A 5 Fr sheath was inserted into the Right Femoral artery 8:12:20 A MULTIPACK Pigtail 5 Fr catheter was advanced over the wire and used for LV Angiography. 8:12:24 LV angiography performed. 8:12:26 LV gram done using JONES 8:12:31 EF : 60 % 8:12:35 Catheter removed. 8:12:40 A MULTIPACK JL 4.0 5Fr catheter was advanced over the wire and used for Left Coronary Angiography. 8:12:43 LCA angiography performed. 8:12:44 Catheter removed. 8:12:51 A MULTIPACK 3DRC 5Fr catheter was advanced over the wire and used for Right Coronary Angiography. 8:12:54 RCA angiography performed. 8:12:55 Catheter removed. 8:13:43 Sheath upsized to a 6 Fr Short. 8:15:32 Versed 2 mg I.V. was administered by Starr May RN; for sedation; Verbal order read back and verified. 8:15:35 Fentanyl 50 mcg I.V. was administered by Starr May RN; for sedation; Verbal order read back and verified. 8:16:02 Heparin Bolus 4000 units I.V. was administered by Starr May RN; for anticoagulation; verified with Dr. Colin Verbal order read back and verified. 8:19:07 GUIDE 6FR EBU 3.0 SH catheter ([id number]) opened to sterile field. 8:19:15 ACC Pre-intervention JESSICA Flow is 3. 8:19:37 6 Fr EBU 3.0 SH guide catheter was inserted over the wire 8:19:41 FFR/IFR wire advanced. 8:19:43 Wire advanced across lesion. 8:19:46 Baseline FFR 100. 8:20:03 mCirc lesion measured at 0.35 with IFR 8:23:30 Place stent Inflation Number: 1 A OSWALDO RX 3.5 x 08 stent ([id number]) was prepped and advanced across the Prox CX 85. The stent was deployed at 13 JUAN MIGUEL for 0:08 (min:sec) 0. 8:23:58 Stent catheter was removed intact over wire. 8:25:35 Place stent Inflation Number: 1 A OSWALDO RX 3.5 x 15 stent ([id number]) was prepped and advanced across the LMCA 80. The stent was deployed at 13 JUAN MIGUEL for 0:10 (min:sec) 0. 8:27:13 Wire removed. 8:27:14 Guide catheter removed. 8:27:37 GUIDE 6FR HS I SH catheter ([id number]) opened to sterile field. 8:27:43 [place] Verrata Plus pressure wire (10591B) opened to sterile field. 8:27:43 INFLATOR Merit MaryixCompak (CA9672) opened to sterile field. 8:27:46 SHEATH 6FR [place] (AHG153) opened to sterile field. 8:28:10 6 Fr HS1 guide catheter was inserted over the wire 8:29:09 ACT drawn and resulted at 250 seconds. (normal therapeutic range 180-240 seconds). 8:29:48 FFR/IFR wire advanced. 8:29:51 Wire advanced across lesion. 8:30:10 mRCA lesion measured at .82 with IFR 8:31:12 Place stent Inflation Number: 1 A OSWALDO RX 2.5 x 22 stent ([id number]) was prepped and advanced across the Dist RCA 75. The stent was deployed at 13 JUAN MIGUEL for 0:10 (min:sec) 0. 8:31:29 Inflation number: 2 The stent balloon was then re-inflated across the Dist RCA 0 to 17 JUAN MIGUEL for 0:08 (min:sec) . 8:35:42 Wire removed. 8:35:43 Guide catheter removed. 8:35:54 Sheath removed intact; hemostasis achieved with Exoseal to the Right Femoral artery. 8:35:58 Procedure ended.(Physican Out) 8:36:10 Fluoroscopy time 06.00 minutes. 8:36:15 Fluoroscopy dose: 884 mGy 8:36:15 Flurop Dose total: 884 8:36:20 Dose Area Product 48879 mGy/cm. 8:36:25 Contrast amount:Isovue 300 144ml. 8:36:32 Maximum allowable dose exceeded? No. 8:36:33 Sharps counted by scrub and verified by R.N. 8:36:36 Insertion/operative site no bleeding no hematoma. 8:36:41 Post right femoral artery:stable 8:36:45 Post Procedure Pulses reassessed and unchanged 8:37:19 Post-procedure physical assessment completed. ASA score P 3 - A patient with severe systemic disease as per Fabrizio Colin MD. 8:37:23 Post procedure rhythm: sinus rhythm 8:37:26 Estimated blood loss: 10 ml 8:37:28 Post procedure instruction explained to patient.Patient verbalizes understanding. 8:38:15 Procedure type changed to Cath procedure, Diagnostic procedure, LHC, LHC w/Coronaries, FFR/IVUS, FFR Initial, FFR Additional, Sedation Charges, Moderate Sedation up to 30 minutes, PCI procedure, Coronary Stent, Coronary Stent Initial, Coronary Stent Initial x2, Hemochron ACT Test 8:38:18 Procedure and supply charges have been captured, reviewed, submitted and are correct. 8:39:59 Procedure Complication : No complications 8:40:02 Vital chart was stopped 8:40:05 [facility] Findings: MVD- PCI performed (see procedure note) 8:40:07 Operative report dictated upon procedure completion. 8:40:20 Report given to [facility]. 8:40:25 Patient transfered to [facility] with Bed. 8:40:26 Procedure ended. 8:40:26 Full Disclosure recording stopped Intervention Summary Intervention Notes Time ActionType Lesion and Equipment Used Action# Pressure Duration Attributes 8:23:30 Place stent Prox CX OSWALDO RX 3.5 x 1 13 00:08 08 stent ([id number]) 8:25:35 Place stent LMCA OSWALDO RX 3.5 x 1 13 00:10 15 stent ([id number]) 8:31:12 Place stent Dist RCA OSWALDO RX 2.5 x 1 13 00:10 22 stent ([id number]) 8:31:29 Reinflate Dist RCA OSWALDO RX 2.5 x 2 17 00:08 stent 22 stent balloon ([id number]) Device Usage Item Name Manufacture Quantity Catalog Hospital Part Current Minimal Lot# / Number Charge Number Stock Stock Serial# Code ACIST Syringe Acist 1 41948 093128 725629 498768 20 (71330) Medical Systems Inc Bag Decanter Microtek 1 929413 92714 656315 5 () Medical Inc. Medline Cath Medline 1 [id number] 964772 60839 957084 5 Pack ([id number]) ACIST Hand Acist 1 71360 740633 459593 865393 5 Control Medical (14751) Systems Inc ACIST Manifold Acist 1 54902 591282 142894 207438 5 (89226) Medical Systems Inc DIAGNOSTIC Cardinal 1 PA5854 029532 83250 065988 30 Multipack 5Fr Health catheter set (KZ1297) SHEATH 5FR Terumo 1 JEO955 046254 635544 282077 5 [place] (VES378) EMERALD Guide Cardinal 1 502-455 899784 396565 667911 5 Wire (502455) Health MULTIPACK Cardinal 1 377714 5 Pigtail 5 Fr Health catheter MULTIPACK JL Cardinal 1 425163 5 4.0 5Fr Health catheter MULTIPACK 3DRC Cardinal 1 447086 5 5Fr catheter Health GUIDE 6FR EBU Medtronic 1 [id number] 953846 33705 980029 0 3.0 SH catheter ([id number]) OSWALDO RX 3.5 x Medtronic 1 [id number] 269938 4481048 453120 5 [id number] 08 stent ([id number]) OSWALDO RX 3.5 x Medtronic 1 [id number] 357716 5367420 386573 5 [id number] 15 stent ([id number]) GUIDE 6FR HS I Medtronic 1 [id number] 574838 95282 449450 1 SH catheter ([id number]) [place] 1 [id number] 237139 295171560 177424 5 Verrata Plus pressure wire (33403Z) INFLATOR Merit Merit 1 [id number] 109539 706163 895668 15 BasScientific Media Medical (DO4121) SHEATH 6FR Terumo 1 XPR849 429904 810869 656882 40 [place] (WOX502) OSWALDO RX 2.5 x Medtronic 1 [id number] 438234 6109322 624674 5 [id number] 22 stent ([id number]) Signature Audit [place] Stage Time Signature Unsigned Intra-Procedure 10/26/2019 Starr May 8:41:32 AM RN; Alanna Land RT(R); Fabrizio Colin MD Signatures Performing Physician : Signature : Fabrizio Colin MD Date : Time : Nurse : Starr May RN Signature : Date : Time : Monitor : Benjamin Suit RT Signature : Date : Time : Monitor : Alanna Emery Signature : RT Date : Time : [address] [place] [address]
--- NOTE | ~2019-10-25 | HP ---
PATIENT: MARIO ALBERTO LOERA MEDICAL RECORD: [id number] ACCOUNT: [id number] LOCATION:[facility].2116 : 84 ADMISSION DATE: 10/25/19 PCP: No PCP HISTORY AND PHYSICAL EXAMINATION DATE OF SERVICE: 10/25/2019 DIAGNOSES: 1. Unstable angina. 2. Coronary artery disease. 3. Previous multivessel percutaneous transluminal coronary angioplasty stent. 4. Hypertension. 5. Hyperlipidemia. 6. Cardiomyopathy. HISTORY OF PRESENT ILLNESS: Mrs. Loera presents with sudden onset of chest discomfort yesterday. She had multiple episodes of chest pain yesterday just like that of her previous angina. She has had multiple episodes of chest pain today as well. Her EKG is with no acute ST-T abnormalities. Troponin is normal. Status post multivessel PTCA stent in the past. PHYSICAL EXAMINATION: CONSTITUTIONAL/GENERAL APPEARANCE: Well nourished, well developed, appears stated age. EYES: Lids and conjunctivae noninjected. No discharge. No pallor. ENT: Lips within normal limit. No cyanosis. No pallor. NECK: Carotid arteries, bilateral normal upstroke. No bruits. No thrills. No jugular venous pressure or distention. CERVICAL LYMPH NODES: Nontender. Nonenlarged. THYROID: Not enlarged. No nodules. CARDIOVASCULAR: Precordial exam, nondisplaced. No heaves or pericardial thrills. Rate and rhythm, regular. Heart sounds, normal S1, normal S2. No S3, no gallop, no rub. Systolic murmur, not heard. Diastolic murmur, not heard. RESPIRATORY: Respiratory effort, unlabored. Normal curvature. No thoracic deformity. No chest wall tenderness. Percussion, resonant. Auscultation, clear. No wheezes, no rales, no rhonchi. ABDOMEN: Soft, nondistended, nontender. No abdominal pain, no vomiting and normal appetite. MUSCULOSKELETAL: No joint tenderness, normal gait, normal tone. SKIN: Warm and dry. OVERALL IMPRESSION: Class IV angina in a patient with a past history of multivessel PTCA stent just like that of her previous angina, multiple episodes of pain at rest. We will add Imdur. Continue her calcium channel dontae and beta dontae, proceed with coronary angiography in the a.m. TRANSINT:[id number] Voice Confirmation ID: [id number] DOCUMENT ID: [id number] HISTORY AND PHYSICAL [id number] MARIO ALBERTO LOERA JEFFREY MD CC: [id number] DICTATION DATE: 10/25/19 1230 BRAILLE CODER: 10/25/19 1345 ADM IN [place] [id number] [place] [id number]
[~2019-10-25 07:13] MED LIST changes: +BAYER CHEWABLE81 MG PO; +DILTIAZEM 24HR240 M4; +PLAVIX75 MG PO; +PRAVACHOL40 MG PO; +TOPROL XL200 MG PO
[2019-10-25 07:58] LABS: BASOPHILS 0.6 % (0-2); EOSINOPHILS 1.9 % (0-7); HEMATOCRIT 33.7 % (36.0-48.0); HEMOGLOBIN 10.1 g/dL (12-16); IMMATURE GRANULOCYTES 0.2 % (0-5); MCH 23.7 pg (26.0-34.0); MCV 78.9 fL (80.0-100.0); MONOCYTES 10.6 % (2-11); NEUTROPHILS 47.7 % (40-80); PLATELET COUNT 358 10x3/uL (130-400); RBC 4.27 10x6/uL (4.00-5.40); RDW 16.7 % (11.5-14.5); WBC 8.1 10x3/uL (4.8-10.8)
--- NOTE | 2019-10-25 07:59 | NUR ---
REPORTS 0/10 PAIN AFTER THE SECOND NITRO.CL IN REACH, VSS SONTINUE TO MONITOR.
[2019-10-25 08:00] VITALS: BP 127/67
[2019-10-25 08:03] LABS: CALC OSMOLALITY 275 mosm/kg (275-300); CALCIUM 8.9 mg/dL (8.5-10.1); CARBON DIOXIDE 26.9 mmol/L (21.0-32.0); CHLORIDE - SERUM 101 mmol/L (98-107); CREATININE - SERUM 0.8 mg/dL (0.6-1.3); GLUCOSE 130 mg/dL (74-106); SODIUM 136 mmol/L (136-145); UREA NITROGEN 17 mg/dL (7-18); eGFR NON AFRICAN AMERICAN 85 mL/min (90-120)
[2019-10-25 08:05] LABS: APTT 28.4 SECONDS (22.8-39.4); INR 1.01 (0.85-1.17); PROTIME 13.2 SECONDS (11.6-15.0)
[2019-10-25 08:06] LABS: D-DIMER-QUANTITATIVE 1.18 ug/mLFEU (0.20-0.54)
[2019-10-25 08:18] LABS: ALBUMIN 3.2 g/dL (3.4-5.0); ALKALINE PHOSPHATASE 78 U/L (46-116); ALT (SGPT) 41 U/L (10-68); BILIRUBIN - TOTAL 0.16 mg/dL (0.2-1.3); CKMB 0.8 U/L (0.0-3.6); CREATINE KINASE 52 UL (21-215); MAGNESIUM - SERUM 1.5 mg/dL (1.8-2.4); TROPONIN-I 0.047 ng/mL (0.000-0.060)
[2019-10-25 09:10] VITALS: BP 123/66
[2019-10-25 10:02] VITALS: BP 143/71
--- NOTE | 2019-10-25 12:14 | NUR ---
RECEIVED PT TO ROOM 2115 VIA WHEELCHAIR, PT WAS ABLE TO AMBULATE FROM WHEELCHAIR, TO BED WITH STEADY GATE. PT A/O X4, RESP EVEN AND NONLABORED ON RA. LT AC IV SL. ORIENTED PT TO ROOM AND CALL LIGHT. WILL ASSESS PT AND START PLAN OF CARE.
[2019-10-25 12:19] VITALS: BP 140/72; BMI 32.3
[2019-10-25 12:27] VITALS: Ht 172.7 cm; Wt 92.5 kg
--- NOTE | 2019-10-25 16:32 | NUR ---
CONSENTS SIGNED BY PT AND PLACED ON CHART. PT DENIES ANY NEEDS AT THIS TIME. CALL LIGHT IN REACH, NAD NOTED, WILL CONTINUE TO MONITOR.
--- NOTE | 2019-10-25 19:20 | NUR ---
RECEIVED BEDSIDE REPORT. PATIENT IS ALERT AND ORIENTED, RESTING COMFORTABLY IN BED. RESPIRATIONS ARE EVEN AND UNLABORED. NO S/S OF DISTRESS. NO C/O PAIN. NEEDS MET. CALL LIGHT WITHIN REACH. WILL CPOC.
[2019-10-25 20:16] VITALS: BP 144/76
[2019-10-26 00:28] VITALS: BP 147/79
[2019-10-26 05:30] VITALS: BP 113/43
[2019-10-26 06:03] LABS: HEMATOCRIT 30.5 % (36.0-48.0); HEMOGLOBIN 9.1 g/dL (12-16); MCH 23.2 pg (26.0-34.0); MCHC 29.8 g/dL (31.0-37.0); MCV 77.6 fL (80.0-100.0); MEAN PLATELET VOLUME 9.8 fL (7.4-10.4); PLATELET COUNT 310 10x3/uL (130-400); RBC 3.93 10x6/uL (4.00-5.40); RDW 16.7 % (11.5-14.5); WBC 6.2 10x3/uL (4.8-10.8)
[2019-10-26 06:29] LABS: CALC OSMOLALITY 280 mosm/kg (275-300); CALCIUM 8.4 mg/dL (8.5-10.1); CARBON DIOXIDE 27.9 mmol/L (21.0-32.0); CHLORIDE - SERUM 106 mmol/L (98-107); CREATININE - SERUM 0.7 mg/dL (0.6-1.3); GLUCOSE 109 mg/dL (74-106); POTASSIUM - SERUM 3.7 mmol/L (3.5-5.1); SODIUM 141 mmol/L (136-145); UREA NITROGEN 11 mg/dL (7-18); eGFR NON AFRICAN AMERICAN > 90 mL/min (90-120)
[2019-10-26 07:21] LABS: BASOPHILS 2 % (0-2); EOSINOPHILS 3 % (0-7); LYMPHOCYTES 52 % (15-50); MONOCYTES 10 % (2-11); NEUTROPHILS 33 % (40-80)
[2019-10-26 07:22] LABS: PLATELET ESTIMATE NORMAL
--- NOTE | 2019-10-26 07:45 | NUR ---
PT TO LEAD APPLICATIONS DEVELOPER.
--- NOTE | 2019-10-26 09:08 | NUR ---
RECEIVED PT BACK TO ROOM 2115. PT SLEEPY BUT EASILY AROUSES TO VOICE. VITALS SIGNS STABLE, DRESSING TO RT GROIN CDI, NO S/S OF HEMATOMA OR BLEEDING NOTED. CALL LIGHT IN REACH, FAMILY AT BEDSIDE, NAD NOTED, WILL CONTINUE TO MONITOR.
--- NOTE | 2019-10-26 10:32 | NUR ---
NO CHANGES TO RT GROIN FROM PREVIOUS ASSESSMENTS. PT RESTING COMFORTABLY, DENIES ANY NEEDS AT THIS TIME. FAMILY AT BEDSIDE, CALL LIGHT IN REACH, NAD NOTED,W ILL CONTINUE TO MONITOR.
--- NOTE | 2019-10-26 13:06 | NUR ---
PROVIDED VERBAL AND WRITTEN DISCHARGE TEACHING TO PT, WHO VERBALIZED UNDERSTANDING REGARING TEACHING. D/C LT AC IV WITH CATHETER TIP INTACT. HEART MONITOR REMOVED AND TAKEN TO VETERINARY LIVESTOCK INSPECTOR. PT WILL NOTIFY NURSE WHEN READY FOR WHEELCHAIR.
--- NOTE | 2019-10-26 13:28 | NUR ---
PT LEFT UNIT VIA WHEELCHAIR, WITH ALL BELONGINGS, ACCOMPANIED BY FAMILY, NAD NOTED.
--- NOTE | 2019-10-27 08:13 | MORECARE ---
CASE MANAGEMENT DISCHARGE SUMMARY PATIENT: MARIO ALBERTO IQBAL UNIT: [id number] ADM DATE: 10/25/19 AGE: 39 : 84 SEX: F ROOM/BED: D.2116 AUTHOR: ALYSSA PAZ PHYSICIAN: REFERRING PHYSICIAN: SUYAPA MARRUFO MD DATE OF SERVICE: 10/27/19 Discharge Plan Patient Name: MARIO ALBERTO IQBAL [facility] : 1980 Planned Disposition: Home Anticipated Discharge Date: 10/26/19 Discharge Date: 10/26/2019 Expected LOS: 1 Initial Reviewer: [email or web address] Initial Review Date: 10/27/2019 Generated: 10/27/19 9:13 am Patient Name: MARIO ALBERTO IQBAL Page 52260 at 0813 All edits/amendments must be made on the electronic document DICTATION DATE: 10/27/19812 PANEL MACHINE OPERATOR: MADINA 10/27/19812 RPT#: [id number] DC DATE:10/26/19 STATUS: DIS IN [facility] [address] [place] [address] END OF REPORT
== END 2019-10-26 13:28 | disposition home or self-care (01) ==
LOC: D.ER 07:13 → D.M2 10:08 → OBSVTIME 11:32 → D.SDCHOLD 10-26 10:46 → D.M2 10-26 10:46
PROVIDERS: Family Medicine; ADMIT Internal Medicine Interventional Cardiology; ATTEND Internal Medicine Interventional Cardiology
DX: I25.10 Atherosclerotic heart disease of native coronary artery without angina pectoris (principal); I10 Essential (primary) hypertension; E78.5 Hyperlipidemia, unspecified; I42.9 Cardiomyopathy, unspecified

== ENCOUNTER → 2020-03-13 20:30 | Outpatient (CLI) | payer SELFPAY ==
[2019-10-25 12:27] VITALS: BMI 32.3
[2020-03-13 21:49] LABS: CHOL - HDL RATIO 2.1 ratio (2.3-4.1); LDL-HDL RATIO 0.9 ratio (1.5-3.5)
== END | disposition home or self-care (01) ==
LOC: D.LABREF 20:30
PROVIDERS: ATTEND Nurse Practitioner Adult Health
DX: E78.5 Hyperlipidemia, unspecified (principal)

== ENCOUNTER → 2020-03-30 09:22 | Outpatient (CLI) | payer SELFPAY ==
[2019-10-25 12:27] VITALS: BMI 32.3
== END | disposition home or self-care (01) ==
LOC: D.HCCARDIO 09:22
PROVIDERS: ATTEND Internal Medicine Cardiovascular Disease
DX: I20.9 Angina pectoris, unspecified (principal)

== ENCOUNTER 2020-04-20 06:01 | Inpatient (IN) | payer MEDICAID ==
[2020-04-20] VITALS (25 sets, daily range): BP systolic 128–180; BP diastolic 55–93; BMI 31.6; BMI 32.0
[~2020-04-20] VITALS: Ht 172.7 cm; Wt 93.2 kg
--- NOTE | ~2020-04-20 | HEMODYNAMI ---
PATIENT:MARIO ALBERTO IQBAL MEDICAL RECORD: [id number] : 84 LOCATION:[facility] ADMISSION DATE: 04/20/20 Generatedon:04/20/20209:08 Patient name: MARIO ALBERTO IQBAL Patient #: [id number] SSN: [id number] : 1980 Date of study: 04/20/2020 Page: Of Hemodynamic Procedure Report Patient Data Patient Demographics First Name: MARIO ALBERTO Gender: Female Last Name: FARIDA : 1980 Middle Initial: MANOJ Age: 40 year(s) Patient #: [id number] Race: Black SSN: [id number] Additional ID: [id number] Contact details [address]: [address] [place] [address] State: [place] City: [place] Zip code: [address] Past Medical History Allergies: No known allergies Admission Admission Data Admission Date: 04/20/2020 Admission Time: 6:01 Arrival Date: 04/20/2020 Arrival Time: 0:00 Admit Source: Other Insurance Payor: None [facility] #: [id number] Height (in.): 68 BSA: 2.05 (m2) Height (cm.): 172.72 BMI: 30.71 (kg/m2) Weight (lbs.): 202 Weight (kg.): 91.63 Lab Results Lab Result Date: 04/20/2020 Lab Result Time: 0:00 Biochemistry Name Units Result Min Max BUN mg/dl 8 --(*---)-- 7 18 Creatinine mg/dl 0.6 --(*---)-- 0.6 1.3 eGFR ml/min 90 --(*---)-- 90 120 NONAFRICAN CBC Name Units Result Min Max Hemoglobin g/dl 10.3 *-(----)-- 13.5 17.5 Procedure Procedure Types Cath Procedure Diagnostic Procedure LHC LH w/Coronaries Sedation Charges Moderate Sedation up to 15 minutes Procedure Description Procedure Date Procedure Date: 04/20/2020 Procedure Start Time: 8:10 Procedure End Time: 8:32 Procedure Staff Name Function Rajinder Wise MD Performing Physician Alanna Land RT Monitor Marie Kelsey RT Scrub Starr May RN Nurse Indication Chest pain Procedure Data Cath Procedure Fluoroscopy Diagnostic fluoroscopy Total fluoroscopy Time: 2.4 time: 2.4 min min Diagnostic fluoroscopy Total fluoroscopy dose: 606 dose: 606 mGy mGy Contrast Material Contrast Material Type Amount (ml) Isovue 300 77 Entry Location Entry Primary Successful Side Size Upsize Upsize Entry Closure Succes sful Closure Location (Fr) 1 (Fr) 2 (Fr) Remarks Device Remarks Femoral Right 5 Fr Exoseal artery Estimated blood loss: 10 ml Diagnostic catheters Device Type Used For End Catheter Placement MULTIPACK JL 4.0 5Fr Procedure catheter MULTIPACK 3DRC 5Fr Procedure catheter MULTIPACK Pigtail 5 Fr Ventriculography catheter MULTIPACK 3DRC 5Fr Procedure catheter Procedure Complications No complications Procedure Medications Medication Administration Route Dosage 0.9% NaCl I.V. 100 ml/hr Oxygen etCO2 Nasal cannula 2 l/min Lidocaine 2% added to field 20 Heparin Flush Bag added to field 2 bags (1000units/500ml NS) Versed I.V. 2 mg Fentanyl I.V. 50 mcg Versed I.V. 2 mg Fentanyl I.V. 50 mcg Heparin Bolus I.V. 5000 units Lopressor I.V. 2.5 mg Morphine I.V. 4 mg Hemodynamics Rest BSA: 2.05 (m2) HGB: 10.3 (g/dl) O2 Consumption: Estimated: 221.04 (ml/min) O2 Co nsumption indexed: Estimated:107.82 (ml/min/m) Heart Rate: 84 (bpm) Pressure Samples Time Site Value (mmHg) Purpose Heart Use Rate(bpm) 8:22 LV 204/8,38 Snapshot 88 8:27 LV 187/2,35 Pullback 88 8:27 AO 185/92(132) Pullback 88 Gradients Valve Time Site 1 Site 2 Mean SEP/DFP Peak To Heart Use (mmHg) (sec/min) Peak Rate (mmHg) (bpm) Aortic 8:27 LV AO 14 19 2 88 187/2,35 185/92(132) Calculations Valve P-P Mean Valve Index Valve Source Name Gradient Area Flow (cm2) Aortic 2 14 2 14 Snapshots Pre Cath Intra NCS Post Cath Vital Signs Time Heart Resp SPO2 etCO2 NIBP (mmHg) Rhythm Pain Sedation Rate (ipm) (%) (mmHg) Status Level (bpm) 7:56:22 69 24 100 36.7 161/84(121) NSR 0 (11) 10(A) , No pain 8:00:48 82 19 100 44.2 165/95(122) NSR 0 (11) 10(A) , No pain 8:05:08 80 27 100 39.7 148/87(120) NSR 0 (11) 10(A) , No pain 8:10:07 76 19 100 40.5 Measuring NSR 0 (11) 10(A) , No pain 8:10:33 81 16 100 40.5 180/104(133) NSR 0 (11) 10(A) , No pain 8:15:14 87 18 100 36.8 182/81(132) NSR 0 (11) 10(A) , No pain 8:19:46 81 20 100 32.3 161/91(121) NSR 0 (11) 9(A) , No pain 8:24:17 84 29 99 30.7 177/87(132) NSR 0 (11) 9(A) , No pain 8:28:54 90 18 100 33.7 178/104(127) NSR 0 (11) 10(A) , No pain 8:47:15 89 34 100 26.2 Acquisition NSR 0 (11) 10(A) error , No pain 8:49:18 91 10 100 33.8 176/92(133) NSR 0 (11) 10(A) , No pain Medications Time Medication Route Dose Verified Delivered Reason Notes Effectiveness by by 7:55:17 0.9% NaCl I.V. 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 2 mg Rajinder Starr for sedation Frandy May RN 8:08:11 Fentanyl I.V. 50 Rajinder Starr for sedation mcg Frandy May RN 8:16:21 Versed I.V. 2 mg Rajinder Starr for sedation Frandy May RN 8:16:24 Fentanyl I.V. 50 Rajinder Starr for sedation mcg Frandy May RN 8:50:47 Heparin Bolus I.V. 5000 Rajinder Starr for verifi ed units Frandy May anticoagulation w/ Dr. RN Frandy 8:52:54 Lopressor I.V. 2.5 Rajinder Starr for mg Frandy May hypertension RN 8:53:55 Morphine I.V. 4 mg Rajinder Starr for chest pain 4mg IV Frandy starr RN over 15 min Procedure Log Time Note 7:37:42 Arrival Date: 04/20/2020 12:00:00 AM 7:37:54 Admit Source: Other 7:38:06 Insurance Payor : None 7:38:55 Patient Height : 68 inches 7:39:22 Patient Weight : 202 lbs 7:40:51 Lab Result : eGFR NONAFRICAN 90 ml/min 7:40:51 Lab Result : Hemoglobin 10.3 g/dl 7:40:51 Lab Result : BUN 8 mg/dl 7:40:51 Lab Result : Creatinine 0.6 mg/dl 7:42:00 Indication : Chest pain 7:42:14 Procedure Status Elective Heart Cath (OP). 7:42:18 Marie Kelsey RT(R) sent for patient. Start room use. 7:42:38 Time tracking: Regular hours (M-F 7:00 - 5:00) 7:42:43 Plan of Care:Hemodynamics will remain stable., Cardiac rhythm will remain stable., Comfort level will be maintained., Respiratory function will remain adequate., Patient/ family verbilizes understanding of procedure., Procedure tolerated without complication., Recovers from procedure without complications.. 7:42:48 Patient received from Pre/Post Procedure Room to CCL 1 Alert and oriented. Tansferred to table in Supine position. 7:43:17 H&P Date Dictated: 04/13/2020 Within 30 days and on chart., H&P Addendum completed by physician on day of procedure. (MUST COMPLETE FOR ALL OUTPATIENTS). 7:45:58 Pre-procedure instructions explained to patient. 7:46:00 Family in patients room. 7:46:03 Patient NPO since Midnight. 7:46:14 Patient allergic to No known allergies 7:46:17 Is the patient allergic to Iodine/contrast media? No. 7:46:18 Was the patient premedicated? Yes 7:47:02 Lab results completed and on chart. 7:47:13 Stress Test: yes; abnormal anterior and lateral' 7:47:22 Right groin area was prepped with chlora-prep and draped in sterile fashion 7:47:26 1) 90+ Normal kidney functon but urine findings or structural abnormalities or genetic trait point to kidney disease. 7:47:30 Maximum allowable contrast dose (3.7 X eGFR X 0.75)250 ml. 7:55:07 Vital chart was started 7:55:17 0.9% NaCl 100 ml/hr I.V. was administered by Starr May RN; used for procedure; Verbal order read back and verified. 7:55:24 Oxygen 2 l/min etCO2 Nasal cannula was administered by Starr May RN; used for procedure; Verbal order read back and verified. 7:55:29 Lidocaine 2% 20ml vial added to field was administered by Rajinder Wise MD; for local anesthetic; Verbal order read back and verified. 7:55:33 Heparin Flush Bag (1000units/500ml NS) 2 bags added to field was administered by Rajinder Wise MD; used for procedure; Verbal order read back and verified. 7:58:40 Is patient on blood thinner?Yes 7:58:43 ACC The patient was administered the following blood thiners within the last 24 hours: ACCPlavix 7:58:47 Patient diabetic? No. 7:58:54 Patient not . Patient has had tubal. 7:59:04 Snore? Yes 7:59:07 Sleep apnea? No 7:59:09 Deviated septum? No 7:59:20 Patient pain scale 2/10 pressure. 7:59:32 IV patent on arrival in right forearm with 0.9% NaCl at KVO. 7:59:41 ECG and BP/O2 sat monitors applied to patient. 7:59:44 Full Disclosure recording started 7:59:45 Baseline sample Acquired. 7:59:52 Physician paged 7:59:55 Physician arrived 8:07:06 Final Timeout: patient, procedure, and site verified with staff and physician. All members of the team are in agreement. 8:07:06 --------ALL STOP TIME OUT------ 8:07:08 Right groin site verified by team. 8:07:13 Fire Safety Assessment: A--An alcohol-based skin anteseptic being used preoperatively., C--Open oxygen or nitrous oxide is being used., D--An ESU, laser, or fiber-optic light is being used. 8:07:24 Physical assessment completed. ASA score P 2 - A patient with mild systemic disease as per Rajinder Wise MD. 8:07:31 Sedation plan: IV Moderate Sedation Medication:Versed, Fentanyl 8:07:37 Use device set Femoral Dx 8:07:40 Bag Decanter (2002S) opened to sterile field. 8:07:40 ACIST Syringe (90017) opened to sterile field. 8:07:41 Medline Cath Pack ([id number]) opened to sterile field. 8:07:42 ACIST Hand Control (71840) opened to sterile field. 8:07:43 DIAGNOSTIC Multipack 5Fr catheter set ([id number]) opened to sterile field. 8:07:43 ACIST Manifold (99988) opened to sterile field. 8:07:46 SHEATH 5FR [place] (DSH079) opened to sterile field. 8:07:47 EMERALD Guide Wire (524-394) opened to sterile field. 8:08:02 Versed 2 mg I.V. was administered by Starr May RN; for sedation; Verbal order read back and verified. 8:08:11 Fentanyl 50 mcg I.V. was administered by Starr May RN; for sedation; Verbal order read back and verified. 8:08:56 Zero performed for pressure channel P1 8:10:37 Procedure started. 8:10:51 Local anesthetic to right femoral artery with Lidocaine 2% by Rajinder Wise MD.INITIAL ACCESS ONLY 8:12:25 A 5 Fr sheath was inserted into the Right Femoral artery 8:14:49 A MULTIPACK JL 4.0 5Fr catheter was advanced over the wire and used for Procedure. 8:15:30 LCA angiography performed. 8:16:21 Versed 2 mg I.V. was administered by Starr May RN; for sedation; Verbal order read back and verified. 8:16:24 Fentanyl 50 mcg I.V. was administered by Starr May RN; for sedation; Verbal order read back and verified. 8:19:24 Catheter removed. 8:19:32 A MULTIPACK 3DRC 5Fr catheter was advanced over the wire and used for Procedure. 8:19:36 RCA angiography performed. 8:20:31 Catheter removed. 8:22:58 A MULTIPACK Pigtail 5 Fr catheter was advanced over the wire and used for Ventriculography. 8:23:01 LV gram done using JONES 8:23:11 EF : 55 % 8:27:58 Catheter removed. 8:28:42 A MULTIPACK 3DRC 5Fr catheter was advanced over the wire and used for Procedure. 8:29:23 checking MARSHALL for possible graph 8:29:36 Catheter removed. 8:29:41 EXOSEAL 5Fr (EX500) opened to sterile field. 8:29:48 Tegaderm 4 x 4 (1626W) opened to sterile field. 8:30:21 Sheath removed intact; hemostasis achieved with Exoseal to the Right Femoral artery. 8:30:34 Procedure ended.(Physican Out) 8:30:39 Fluoroscopy time 02.40 minutes. 8:30:44 Fluoroscopy dose: 606 mGy 8:30:44 Flurop Dose total: 606 8:30:49 Dose Area Product 49070 mGy/cm. 8:30:54 Contrast amount:Isovue 300 77ml. 8:30:57 Maximum allowable dose exceeded? No. 8:30:59 Sharps counted by scrub and verified by R.N. 8:31:01 Insertion/operative site no bleeding no hematoma. 8:31:06 Post-op/insertion site Right Femoral artery dressed using a 4 x 4 and Tegaderm. 8:31:08 Post Procedure Pulses reassessed and unchanged 8:31:12 Post-procedure physical assessment completed. ASA score P 3 - A patient with severe systemic disease as per Rajinder Wise MD. 8:31:16 Post procedure rhythm: unchanged. 8:31:19 Estimated blood loss: 10 ml 8:31:21 Post procedure instruction explained to patient.Patient verbalizes understanding. 8:31:45 Procedure type changed to Cath procedure, Diagnostic procedure, LHC, C w/Coronaries, Sedation Charges, Moderate Sedation up to 15 minutes 8:31:50 Procedure and supply charges have been captured, reviewed, submitted and are correct. 8:32:18 Procedure Complication : No complications 8:32:21 Vital chart was stopped 8:32:27 [facility] Findings: MVD- CABG consult 8:32:30 See physician's report for complete and final results. 8:32:33 Report given to Pre/Post Procedure Room. 8:32:36 Patient transfered to Pre/Post Procedure Room with Stretcher. 8:32:38 Full Disclosure recording stopped 8:32:38 Procedure ended. 8:32:42 End room use (Document Last) 8:34:37 End room use (Document Last) 8:50:47 Heparin Bolus 5000 units I.V. was administered by Starr May RN; for anticoagulation; verified w/ Dr. Wise Verbal order read back and verified. 8:52:54 Lopressor 2.5 mg I.V. was administered by Starr May RN; for hypertension; Verbal order read back and verified. 8:53:55 Morphine 4 mg I.V. was administered by Starr May RN; for chest pain; 4mg IV given over 15 min Verbal order read back and verified. Device Usage Item Name Manufacture Quantity Catalog Hospital Part Current Minimal L ot# / Number Charge Number Stock Stock Serial# Code ACIST Acist 1 78654 278933 359131 [id number] 20 Syringe Medical (14976) Systems Inc Bag Microtek 1 219251 80702 619372 5 Decanter Medical Inc. () Medline Medline 1 [id number] 102521 93768 377941 5 Cath Pack ([id number]) ACIST Hand Acist 1 22889 937586 808288 878741 5 Control Medical (48275) Systems Inc ACIST Acist 1 86181 236410 414367 853762 5 Manifold Medical (24839) Systems Inc DIAGNOSTIC Cardinal 1 [id number] 533324 61915 183232 30 Multipnew [facility] 5Fr catheter set (UZ2148) SHEATH 5FR Terumo 1 PYY845 428861 679297 281544 5 [place] (RCT936) EMERALD Cardinal 1 502-320 007065 537429 634759 [address] [facility] (879-484) MULTIPACK Cardinal 1 432432 5 JL 4.0 5Fr Health catheter MULTIPACK Cardinal 1 919957 5 3DRC 5Fr Health catheter MULTIPACK Cardinal 1 597630 5 Pigtail 5 Health Fr catheter EXOSEAL 5Fr Cardinal 1 EX500 124197 651819 365763 10 (EX500) Health Tegaderm 4 3M 1 1626W 264314 779641 223949 5 x 4 (1626W) Signature Audit Ira Stage Time Signature Unsigned Intra-Procedure 04/20/2020 Alanna Land 8:34:37 AM RT(R) Intra-Procedure 04/20/2020 Starr May 8:35:02 AM RN Intra-Procedure 04/20/2020 Rajinder Wise MD 8:35:26 AM 04/20/2020 8:42:38 AM Intra-Procedure 04/20/2020 Rajinder Wise MD 8:47:47 AM Intra-Procedure 04/20/2020 Rajinder Wise MD 9:07:[address] [facility] [address] [place] [address]
[2020-04-20] MEDS ORDERED: ISOSORBIDE MONO30 M1 PO (06:27)
[2020-04-20 06:56] LABS: HEMATOCRIT 34.8 % (36.0-48.0); HEMOGLOBIN 10.3 g/dL (12-16); MCH 23.7 pg (26.0-34.0); MCHC 29.6 g/dL (31.0-37.0); MEAN PLATELET VOLUME 10.2 fL (7.4-10.4); RBC 4.35 10x6/uL (4.00-5.40); RDW 15.1 % (11.5-14.5); WBC 5.4 10x3/uL (4.8-10.8)
[2020-04-20 07:01] LABS: PLATELET COUNT 199 10x3/uL (130-400)
[2020-04-20 07:30] LABS: CHOL - HDL RATIO 1.7 ratio (2.3-4.1); LDL-HDL RATIO 0.6 ratio (1.5-3.5)
[2020-04-20 07:31] LABS: CALC OSMOLALITY 276 mosm/kg (275-300); CALCIUM 9.1 mg/dL (8.5-10.1); CARBON DIOXIDE 27.6 mmol/L (21.0-32.0); CHLORIDE - SERUM 105 mmol/L (98-107); CREATININE - SERUM 0.6 mg/dL (0.6-1.3); GLUCOSE 116 mg/dL (74-106); POTASSIUM - SERUM 3.6 mmol/L (3.5-5.1); SODIUM 139 mmol/L (136-145); UREA NITROGEN 8 mg/dL (7-18); eGFR NON AFRICAN AMERICAN > 90 mL/min (90-120)
--- NOTE | 2020-04-20 09:19 | NUR ---
PT RECEIVED VIA STRECTHER TO ROOM 8 FOR OBSERVATION WAITING ON CV ICU BED. PT STABLE, PLACED ON CARDIAC MONITORS AND O2 VIA NC AT 2L. HR 95, BP 158/84, SAT 98. PT C/O CONTINUED CHEST PAIN, PT WAS MEDICATED W MORPHINE PRIOR TO ARRIVAL. R GROIN W 5FR EXOCELE TO R GROIN, DRESSING CDI NO S/S HEMATOMA OR BLEEDING NOTED. LEG PINK AND WARM, PEDAL PULSES PALPABLE. CALL LIGHT IN REACH
--- NOTE | 2020-04-20 09:43 | NUR ---
PT RESTING COMFORTABLY, VSS. PT PLACED ON BEDPAN. CALL LIGHT IN REACH
--- NOTE | 2020-04-20 09:46 | NUR ---
PT TRANSFERED TO [facility] VIA STRETCHER.
--- NOTE | 2020-04-20 09:55 | NUR ---
PT ARRIVED TO UNIT AT THIS TIME FROM CEMENT BLOCK MAKER. PT LETHARGIC, AROUSES TO VOICE AND ABLE TO ANSWER ORIENTATION QUESTIONS APPROPRIATELY. RT GROIN SITE WDL WITH DRESSING CDI. PT TO LAY FLAT X 2H. NO ACUTE DISTRESS NOTED. WILL CONTINUE PLAN OF CARE.
[2020-04-20 10:14] LABS: PLT FUNCT.(P2Y12) PLAVIX 250 PRU (194-418)
--- NOTE | 2020-04-20 10:26 | NUR ---
PER DR RUSSELL START HEPRIN GTT AT THIS TIME AT 1000 U/HR AND THEN FOLLOW PER PROTOCOL.
--- NOTE | 2020-04-20 10:37 | NUR ---
WILL START HEPARIN GTT SOON LAB DRAWS COAG LEVELS.
[2020-04-20 10:52] LABS: HEMATOCRIT 36.3 % (36.0-48.0); HEMOGLOBIN 10.8 g/dL (12-16); MCH 23.8 pg (26.0-34.0); MCHC 29.8 g/dL (31.0-37.0); MEAN PLATELET VOLUME 10.8 fL (7.4-10.4); RBC 4.54 10x6/uL (4.00-5.40); RDW 15.3 % (11.5-14.5)
[2020-04-20 10:57] LABS: WBC 8.2 10x3/uL (4.8-10.8)
[2020-04-20 11:00] LABS: INR 1.29 (0.85-1.17); PROTIME 15.9 SECONDS (11.6-15.0)
[2020-04-20 11:04] LABS: EOSINOPHILS 1 % (0-7); LYMPHOCYTES 42 % (15-50); MONOCYTES 17 % (2-11); NEUTROPHILS 40 % (40-80); PLATELET ESTIMATE NORMAL
--- NOTE | 2020-04-20 11:31 | NUR ---
DR MCCAIN IN ROOM SPEAKING WITH PT AND PTS .
[2020-04-20 11:49] LABS: APTT > 200.0 SECONDS (22.8-39.4)
--- NOTE | 2020-04-20 11:55 | NUR ---
DR MCCAIN NOTIFIED OF PTS HIGH BLOOD PRESSURE WITH SBP TRENDING 155-180. ORDER RECIEVED FOR METOPROLOL 2.5 TO 5 MG.
--- NOTE | 2020-04-20 13:54 | NUR ---
LYING IN BED AWAKE AT THIS TIME, AT BEDSIDE. PT HAS LAYED FLAT WITH RT LEG STRAIGHT FOR 2 HOURS, PT REPOSITIONED TO COMFORT SINCE NOW ABLE TO BEND LEG. VSS. WILL CONTINUE PLAN OF CARE.
--- NOTE | 2020-04-20 14:26 | NUR ---
CONTINENT VOID, 500ML, NOTED TO BEDPAN. ANTONIO CARE PROVIDED. PT VSS. NO ACUTE DISTRESS NOTED. WILL CONTINUE PLAN OF CARE.
--- NOTE | 2020-04-20 15:48 | NUR ---
LYING IN BED RESTING AT THIS TIME. RESPIRATIONS UNLABORED AND EVEN. AWAKENS EASILY WHEN SPOKEN TO. DENIES ANY NEEDS. VSS. CALL LIGHT IN REACH ALONG WITH PERSONAL ITEMS. WILL CONTINUE PLAN OF CARE.
--- NOTE | 2020-04-20 16:12 | NUR ---
NOTED PT TO HAVE CABG TOMORROW, DR ELIZABETH HAS SPOKEN WITH PT AND PTS FAMILY. PT DENIES ANY QUESTIONS OR CONCERNS AT THIS TIME. VSS. WILL CONTINUE PLAN OF CARE.
[2020-04-20 17:38] LABS: ALKALINE PHOSPHATASE 97 U/L (30-120); BILIRUBIN - TOTAL 0.65 mg/dL (0.2-1.3); CALC OSMOLALITY 269 mosm/kg (275-300); CALCIUM 8.5 mg/dL (8.5-10.1); CARBON DIOXIDE 26.7 mmol/L (21.0-32.0); CHLORIDE - SERUM 101 mmol/L (98-107); CHOLESTEROL, TOTAL 104 mg/dL (0-200); CREATININE - SERUM 0.5 mg/dL (0.6-1.3); GLUCOSE 91 mg/dL (74-106); PHOSPHOROUS 3.6 mg/dL (2.5-4.9); POTASSIUM - SERUM 3.6 mmol/L (3.5-5.1); PROTEIN - SERUM 7.1 g/dL (6.4-8.2); SODIUM 136 mmol/L (136-145); T4 THYROXIN - FREE 2.94 ng/dL (0.76-1.46); UREA NITROGEN 6 mg/dL (7-18); URIC ACID 4.1 mg/dL (2.6-7.2); eGFR NON AFRICAN AMERICAN > 90 mL/min (90-120)
[2020-04-20 17:44] LABS: ALT (SGPT) 38 U/L (10-68)
[2020-04-20 17:45] LABS: HEMATOCRIT 34.8 % (36.0-48.0); HEMOGLOBIN 10.5 g/dL (12-16); LYMPHOCYTES 41.1 % (15-50); MCHC 30.2 g/dL (31.0-37.0); MCV 79.6 fL (80.0-100.0); MEAN PLATELET VOLUME 10.6 fL (7.4-10.4); PLATELET COUNT 206 10x3/uL (130-400); RBC 4.37 10x6/uL (4.00-5.40); RDW 15.3 % (11.5-14.5); WBC 7.7 10x3/uL (4.8-10.8)
[2020-04-20 17:48] LABS: INR 1.09 (0.85-1.17)
--- NOTE | 2020-04-20 18:10 | NUR ---
CAROTID DOPPLER RESULTS NOTIFIED TO DR ELIZABETH.
[2020-04-21] VITALS (30 sets, daily range): BP systolic 107–170; BP diastolic 38–87; Ht 172.7 cm; Wt 93.2 kg
[2020-04-21 05:22] LABS: HEMATOCRIT 33.1 % (36.0-48.0); MCHC 30.2 g/dL (31.0-37.0); MCV 79.6 fL (80.0-100.0); MEAN PLATELET VOLUME 10.3 fL (7.4-10.4); RBC 4.16 10x6/uL (4.00-5.40); WBC 7.4 10x3/uL (4.8-10.8)
[2020-04-21 06:02] LABS: BILIRUBIN NEGATIVE (NEGATIVE); GLUCOSE NEGATIVE (NEGATIVE); KETONE NEGATIVE (NEGATIVE); NITRITE NEGATIVE (NEGATIVE); UROBILINOGEN NORMAL (NORMAL)
[2020-04-21 06:03] LABS: BACTERIA NONE SEEN /hpf (NEGATIVE); EPITHELIAL CELLS 0-5 /hpf (0-5); RED CELLS - URINE 0-5 /hpf (0-5); WHITE CELLS - URINE 0-5 /hpf (NEGATIVE)
[2020-04-21 06:07] LABS: HCG SERUM NEGATIVE (NEGATIVE)
[2020-04-21 07:49] LABS: ALBUMIN 2.8 g/dL (3.4-5.0); ALKALINE PHOSPHATASE 88 U/L (30-120); ALT (SGPT) 37 U/L (10-68); BILIRUBIN - TOTAL 0.71 mg/dL (0.2-1.3); CALC OSMOLALITY 266 mosm/kg (275-300); CALCIUM 8.5 mg/dL (8.5-10.1); CARBON DIOXIDE 26.9 mmol/L (21.0-32.0); CHLORIDE - SERUM 101 mmol/L (98-107); CREATININE - SERUM 0.6 mg/dL (0.6-1.3); GLUCOSE 115 mg/dL (74-106); POTASSIUM - SERUM 3.7 mmol/L (3.5-5.1); PROTEIN - SERUM 6.8 g/dL (6.4-8.2); SODIUM 134 mmol/L (136-145); UREA NITROGEN 7 mg/dL (7-18); eGFR NON AFRICAN AMERICAN > 90 mL/min (90-120)
--- NOTE | 2020-04-21 11:14 | NUR ---
ERIC DE LA GARZA DONE.
--- NOTE | 2020-04-21 13:59 | NUR ---
PT TO OR. CONCENTS ON CHART. FAMILY NOTIFIED.
--- NOTE | 2020-04-21 19:21 | NUR ---
RECEIVED PATIENT TO CV2 FROM O.R. ACCOMPANIED BY DR. MATUTE AND HRT TEAM. CONNECTED TO BEDSIDE MONITOR WITH ALARMS SET. RT AT BEDSIDE. ETT INTACT/SECURE/PATENT CONNECTED TO MECHANICAL VENT AT ORDERED SETTINGS. MEDIASTINAL CHEST TUBE INTACT/SECURE/PATENT CONNECTED TO 20 CM WALL SUCTION. APPROX 160 MLS BLOODY FLUID IN COLLECTION CHAMBER UPON ARRIVAL TO UNIT. RT AND LEFT JANAK DRAINS INTACT/SECURE/PATENT AND COMPRESSED WITH SMALL AMOUNT OF BLOODY DRAINAGE IN BULBS. 1924 FSBS [address] MATUTE AND HRT TEAM MANAGING 1956 ABG RESULTS REPORTED TO DR. ELIZABETH. INSTRUCTED TO GIVE 1 AMP CALCIUM 20 MEQ KCL IV 2100 RT AT BEDSIDE. VENT SETTINGS CHANGED TO SIMV 2200 RT AT BEDSIDE. VENT SETTINGS CHANGED TO CPAP [address] ELIZABETH UPDATED ON PATIENT AND REPORTED CURRENT ABG RESULTS. INSTRUCTED TO SET VENT RATE @10 AND SEDATE WITH DIPRIVAN THROUGH THE NIGHT. RT ANNETTE NOTIFIED.
--- NOTE | 2020-04-21 20:30 | NUR ---
PATIENT'S MOTHER AT BEDSIDE. UPDATED GIVEN AND QUESTIONS ANSWERED.
[2020-04-22] VITALS (77 sets, daily range): BP systolic 102–159; BP diastolic 50–83
--- NOTE | 2020-04-22 01:00 | NUR ---
SEDATED/INTUBATED. VSS. WILL CONTINUE CURRENT POC
--- NOTE | 2020-04-22 03:00 | NUR ---
SEDATED/INTUBATED. REASSESSMENT COMPLETED PER FLOW SHEET WITH NO ACUTE DISTRESS OBSERVED. VSS. CONTINUE CURRENT POC
--- NOTE | 2020-04-22 05:00 | NUR ---
SEDATED/INTUBATED. VSS. CONT CURRENT POC
--- NOTE | 2020-04-22 06:00 | NUR ---
CHG BATH/ DESHPANDE CATHETER CARE/ AND ORAL CARE PERFORMED. SUBSTERNAL DRSG CHANGE PERFORMED. EVA WELL. VSS.
[2020-04-22 06:34] LABS: HEMATOCRIT 30.5 % (36.0-48.0); HEMOGLOBIN 9.3 g/dL (12-16); MCH 24.1 pg (26.0-34.0); MCHC 30.5 g/dL (31.0-37.0); MEAN PLATELET VOLUME 9.8 fL (7.4-10.4); RBC 3.86 10x6/uL (4.00-5.40); RDW 15.7 % (11.5-14.5); WBC 13.2 10x3/uL (4.8-10.8)
[2020-04-22 07:12] LABS: ALBUMIN 2.6 g/dL (3.4-5.0); ALKALINE PHOSPHATASE 73 U/L (30-120); ALT (SGPT) 34 U/L (10-68); BILIRUBIN - TOTAL 1.38 mg/dL (0.2-1.3); CALC OSMOLALITY 282 mosm/kg (275-300); CALCIUM 8.2 mg/dL (8.5-10.1); CARBON DIOXIDE 25.3 mmol/L (21.0-32.0); CHLORIDE - SERUM 108 mmol/L (98-107); GLUCOSE 103 mg/dL (74-106); POTASSIUM - SERUM 4.1 mmol/L (3.5-5.1); PROTEIN - SERUM 5.8 g/dL (6.4-8.2); SODIUM 143 mmol/L (136-145); UREA NITROGEN 7 mg/dL (7-18)
[2020-04-22 07:17] LABS: CREATININE - SERUM 0.4 mg/dL (0.6-1.3); eGFR NON AFRICAN AMERICAN > 90 mL/min (90-120)
--- NOTE | 2020-04-22 07:44 | NUR ---
PROPOLOL OFF. RT AWARE.
--- NOTE | 2020-04-22 09:30 | NUR ---
RESP RATE 40BPM ON CPAP TRIALS. DR ELIZABETH NOTIFIED AND PT PLACED BACK ON A/C RATE OF 14 PER RT. MS GIVEN DURING CPAP TRIALS WELL. LOPRESSOR GIVEN WELL FOR HR 140. VSS AT PRESENT TIME. PT RESTING QUIETLY.
--- NOTE | 2020-04-22 09:52 | NUR ---
DR ELIZABETH HERE ON ROUNDS AT BS.
--- NOTE | 2020-04-22 10:33 | OP ---
PATIENT NAME: MARIO ALBERTO IQBAL MEDICAL RECORD: [id number] :84 [facility] ADMISSION DATE:04/20/20 SURGEON: MARTIN MUÑOZ MD DATE OF OPERATION: 04/21/2020 SURGEON: Martin Muñoz MD PROCEDURE PERFORMED: Coronary artery bypass graft times 2 (left internal mammary artery to LAD, free right internal mammary artery from aorta to obtuse marginal). PREOPERATIVE DIAGNOSES: Coronary artery disease with left main stent restenosis, ostial circumflex critical stenosis, and acute coronary syndrome. POSTOPERATIVE DIAGNOSES: Coronary artery disease with left main stent restenosis, ostial circumflex critical stenosis, and acute coronary syndrome. ANESTHESIA: General endotracheal anesthesia. ESTIMATED BLOOD LOSS: Total cardiopulmonary bypass with Cell Saver retransfusion, one packed red blood cells, one platelet. CONDITION: Stable. SPECIMENS: Left internal mammary artery lymph node, right internal mammary artery lymph node. DISPOSITION: CV ICU. OPERATIVE FINDINGS: 1. Good quality left internal mammary artery. The LAD was 2.5 mm. 2. Good quality right internal mammary artery used as a free graft from the aorta to the large lateral obtuse marginal graft, the high lateral OM was not grafted as it was small. OPERATIVE INDICATION: Acute coronary syndrome and positive stress test with critical circumflex restenosis and left main restenosis. The right coronary artery has had stents and there was no restenosis. OPERATIVE PROCEDURE IN DETAIL: The patient was brought to the operative suite. General anesthesia was obtained. The patient was prepped and draped. Median sternotomy incision was made. Subcutaneous tissue divided with electrocautery. Sternum was divided with a saw. The left hemisternum was elevated. Left pleural cavity was entered. Left internal mammary vein was taken as a pedicle graft. The right hemisternum was elevated. The right pleural cavity was entered. Right internal mammary artery was taken down as a mostly skeletonized graft. Heparin was given. After the heparin had circulated, the distal vessel was divided with clips and proximally the vein and artery were divided separately with ligation and oversewing of the stump as well the ____ the vessel was cannulated and perfused with papaverine. Sternal retractor was placed. Pericardium was opened. Heparin was given. The aorta was cannulated. Dual stage venous cannula was inserted. Retrograde OPERATIVE REPORT [id number] IQBAL,LECHEON RONTAE cardioplegia cannula was inserted. Left internal mammary was divided and made ready for anastomosis. The patient was placed on cardiopulmonary bypass. Sites for distal anastomoses were selected. Antegrade cardioplegic cannula was inserted. The patient's temperature drifted downwardly to about 36. Crossclamp was placed. Cardioplegia was given antegrade and retrograde, and antegrade cardioplegia was repeated at 15 to 20 minute intervals during the cross clamp time. Distal anastomosis was performed in standard technique. Proximal anastomosis with 7-0 and a 3.5 mm punch for the free right internal mammary artery directed to the aorta. Crossclamp removed. The patient rewarmed, resumed spontaneous rhythm. The retrograde cannula was removed. The cannula site was oversewn. The patient was weaned from cardiopulmonary bypass and was stable. The patient was decannulated. The cannula sites were oversewn. Protamine was given. Grafts lay appropriately. Good Doppler signals were noted in both grafts. Thorough irrigation was undertaken. Hemostasis was assured. Drains were placed in the mediastinum and in both pleural cavities. The pericardial fat was approximated over the great vessels and over the heart. Both chests were evacuated. Both mammary artery harvest sites were inspected for bleeding. Sternum was closed with wires. Fascia was closed. Subcutaneous tissue was closed. Skin was closed. Dermabond was placed. The needle and sponge counts reported correct. The patient was taken to ICU in stable condition. TRANSINT:[id number] Voice Confirmation ID: [id number] DOCUMENT ID: [id number] MARTIN MUÑOZ MD at 1033 CC: LUPE MCCAIN M.D. [id number] DICTATION DATE: 04/21/201901 CHILD AND ADOLESCENT PSYCHIATRIST: 04/22/20 0048 ADM IN [facility] [address] [place] [address]
--- NOTE | 2020-04-22 10:39 | NUR ---
DR SMITH NOTIFIED OF CONSULT.
--- NOTE | 2020-04-22 11:45 | NUR ---
DR SMITH HERE ON ROUNDS.
--- NOTE | 2020-04-22 13:41 | NUR ---
PT TURNED. MOUTH CARE DONE AND APPRESOLINE GIVEN FOR BP 142/64.
--- NOTE | 2020-04-22 13:58 | NUR ---
TEMP 101.7. TYLENOL SUPP GIVEN.
--- NOTE | 2020-04-22 15:36 | NUR ---
REPORTED TO DR ELIZABETH THAT TEMP IS PERSISTENT DISPITE TYLENOL.REC'D NEW ORDERS.
--- NOTE | 2020-04-22 19:50 | NUR ---
TYLENOL SUPP ADMIN PER RECT FOR TEMP 102.2. EVA WELL
--- NOTE | 2020-04-22 21:15 | NUR ---
DR. ELIZABETH UPDATED ON PATIENT. REPORTED INCREASED HR 115-120. NEW ORDERS RECEIVED.
--- NOTE | 2020-04-22 23:00 | NUR ---
SEDATED/INTUBATED. REASSESSMENT COMPLETED PER FLOW SHEET WITH NO ACUTE DISTRESS OBSERVED. VSS. TURNED AND REPOSITIONED. ORAL CARE GIVEN. EVA WELL. WILL CONTINUE CURRENT POC
[2020-04-23] VITALS (81 sets, daily range): BP systolic 110–160; BP diastolic 40–78
--- NOTE | 2020-04-23 01:00 | NUR ---
SEDATED/INTUBATED. VSS. ORAL CARE GIVEN. TURNED AND REPOSTIONED. EVA WELL
--- NOTE | 2020-04-23 03:00 | NUR ---
SEDATED/INTUBATED. REASSESSMENT COMPLETED PER FLOW SHEET WITH NO ACUTE DISTRESS OBSERVED. VSS. TURNED AND REPOSITIONED. ORAL CARE GIVEN. EVA WELL CONT CURRENT POC
[2020-04-23 06:17] LABS: HEMATOCRIT 27.9 % (36.0-48.0); HEMOGLOBIN 8.3 g/dL (12-16); MCH 23.7 pg (26.0-34.0); MCHC 29.7 g/dL (31.0-37.0); MCV 79.7 fL (80.0-100.0); RBC 3.5 10x6/uL (4.00-5.40); RDW 16.1 % (11.5-14.5)
[2020-04-23 06:20] LABS: WBC 16.9 10x3/uL (4.8-10.8)
[2020-04-23 06:54] LABS: ALBUMIN 2.3 g/dL (3.4-5.0); ALKALINE PHOSPHATASE 63 U/L (30-120); BILIRUBIN - TOTAL 1.04 mg/dL (0.2-1.3); CALCIUM 8.1 mg/dL (8.5-10.1); CARBON DIOXIDE 26.3 mmol/L (21.0-32.0); CHLORIDE - SERUM 107 mmol/L (98-107); CREATININE - SERUM 0.5 mg/dL (0.6-1.3); GLUCOSE 110 mg/dL (74-106); POTASSIUM - SERUM 3.6 mmol/L (3.5-5.1); PROTEIN - SERUM 5.8 g/dL (6.4-8.2); SODIUM 141 mmol/L (136-145); eGFR NON AFRICAN AMERICAN > 90 mL/min (90-120)
[2020-04-23 07:00] LABS: ALT (SGPT) 23 U/L (10-68); CALC OSMOLALITY 281 mosm/kg (275-300); UREA NITROGEN 13 mg/dL (7-18)
--- NOTE | 2020-04-23 07:38 | NUR ---
PT RESTING QUIETLY. HR 113 CARDIZEM GTT AT 5MG/H. SEDATION DIPROVAN AT 45MCG/K/M AND FENTANYL AT 100MCG/H. NITRO AT 15MCG/MIN. ABG BEING DRAWN NOW PER RT.
--- NOTE | 2020-04-23 08:27 | NUR ---
KCL RELPACEMENT BEING PER SLIDING SCALE INITIATED.
--- NOTE | 2020-04-23 09:01 | NUR ---
DR SMITH HERE. ASKING TO CK WITH DR ELIZABETH RE MARVIN. NOTIFIED DR ELIZABETH AND IS OK FOR LASIX PER DR ELIZABETH.
--- NOTE | 2020-04-23 09:33 | NUR ---
LASIX GIVEN ORDERED. DIPROVAN DECREASED DIREDTED BY DR SMITH. BP INCREASING. ANTIHYPERTENSIVES TITRATED UP NITRO INC BY 5MCG AND CLEVIPRES INITIATED.
--- NOTE | 2020-04-23 10:30 | NUR ---
DR SMITH CALLED AND GAVE ORDERS TO WEAN SEDATION. MARILYN LOPEZ.
--- NOTE | 2020-04-23 10:40 | NUR ---
REC'D ORDERS TO WEAN SEDATION. FENTANYL DECREASED TO 25MCG. DIP 30MCG.
--- NOTE | 2020-04-23 11:23 | NUR ---
SBT PER RT WITH SEDATION MINIMAL. HR 140, SBP 160 WITH TITRATING OF CLEVIPREX TO DROP BACK TO S140. RESP 50 TO 60. ATTEMPTING TO CALM PT. PT PLACED BACK ON AC BY RT. SEDATION REPLACED AT PREVIOUS RATE. PT NOW RESTING QUIETLY. SBP 138. NITRO 30MCG/MIN AND CLIVEPREX MCG/H. HR 130.
--- NOTE | 2020-04-23 15:20 | NUR ---
PT TURNED AND MOUTH CARE COMPLETE.
--- NOTE | 2020-04-23 18:26 | NUR ---
NITRO AND CLEVIPREX TITRATED OFF AND FENTANYL DECREASED TO 75MCG/H. BP 123/56. HR 86. PT RESTING COMFORTABLE.
--- NOTE | 2020-04-23 19:00 | NUR ---
REPORT RECEIVED. RECEIVED PATIENT IN BED SEDATED/INTUBATED. ETT INTACT/SECURE/PATENT CONNECTED TO [facility] VENT AT ORDERED SETTINGS. MONITORS CONNECTED TO PATIENT WITH ALARMS SET. VSS. ASSESSMENT COMPLETED PER FLOW SHEET WITH NO ACTUTE DISTRESS OBSERVED. MEDIASTINAL CHEST TUBE INTACT/SECURE/PATENT DRAINING SMALL AMOUNT OF SEROSANGUINEOUS FLUID INTO COLLECTION CHAMBER. CT CONNECTED TO 20 CM WALL SUCTION WITH NO AIR LEAK SEEN. R AND L JANAK INTACT/SECURE/PATENT AND COMPRESSED WITH SMALL AMOUNT OF SEROSANGUINEOUS FLUID IN BULB. WILL CONTINUE CURRENT POC
--- NOTE | 2020-04-23 21:00 | NUR ---
SEDATED/INTUBATED. VSS. ORAL CARE GIVEN. TURNED AND REPOSTIONED FOR COMFORT. EVA WELL. HOB UP 30 DEGREES
--- NOTE | 2020-04-23 23:00 | NUR ---
SEDATED/INTUBATED. REASSESSMENT COMPLETED PER FLOW SHEET WITH NO ACUTE DISTRESS OBSERVED. VSS. TURNED AND REPOSTIONED. ORAL CARE GIVEN. EVA WELL. WILL CONT CURRENT POC
[2020-04-24] VITALS (93 sets, daily range): BP systolic 94–153; BP diastolic 47–68
--- NOTE | 2020-04-24 01:00 | NUR ---
SEDATED/INTUBATED. VSS. TURNED AND REPOSITIONED. ORAL CARE GIVEN. EVA WELL.
--- NOTE | 2020-04-24 03:00 | NUR ---
REASSESSMENT COMPLETED PER FLOW SHEET WITH NO ACUTE DISTRESS OBSERVED. VSS. WILL CONTINUE CURRENT PLAN OF CARE
[2020-04-24 05:58] LABS: HEMATOCRIT 27.2 % (36.0-48.0); HEMOGLOBIN 8.1 g/dL (12-16); MCHC 29.8 g/dL (31.0-37.0); MCV 80.5 fL (80.0-100.0); MEAN PLATELET VOLUME 10.3 fL (7.4-10.4); RBC 3.38 10x6/uL (4.00-5.40); RDW 16.4 % (11.5-14.5); WBC 15.3 10x3/uL (4.8-10.8)
--- NOTE | 2020-04-24 06:30 | NUR ---
DR. ELIZABETH UPDATED ON PATIENT, INFORMED OF ELEVATED TEMP UP TO 103.3 AND TACHYCARDIA NO NEW ORDERS AT THIS TIME.
[2020-04-24 06:45] LABS: ALBUMIN 2.1 g/dL (3.4-5.0); ALKALINE PHOSPHATASE 61 U/L (30-120); ALT (SGPT) 20 U/L (10-68); BILIRUBIN - TOTAL 0.55 mg/dL (0.2-1.3); CALC OSMOLALITY 284 mosm/kg (275-300); CALCIUM 8.5 mg/dL (8.5-10.1); CARBON DIOXIDE 27.8 mmol/L (21.0-32.0); CHLORIDE - SERUM 107 mmol/L (98-107); CREATININE - SERUM 0.6 mg/dL (0.6-1.3); GLUCOSE 127 mg/dL (74-106); POTASSIUM - SERUM 3.7 mmol/L (3.5-5.1); PROTEIN - SERUM 6.2 g/dL (6.4-8.2); SODIUM 141 mmol/L (136-145); eGFR NON AFRICAN AMERICAN > 90 mL/min (90-120)
[2020-04-24 06:51] LABS: UREA NITROGEN 18 mg/dL (7-18)
--- NOTE | 2020-04-24 07:52 | NUR ---
SEDATION HAS BEEN TURNED OFF PER DR. ELIZABETH. PT WAKING UP. FOLLOWS SIMPLE COMMANDS. RR 27. VENT SETTINGS AC, R14, TV 500, FIO2 40%, PEEP 5. ETT SIZE 7 24 AT LIP MIDLINE. TACHICARDIC 130S. DR. ELIZABETH AWARE. ORDERS RECEIVED.
--- NOTE | 2020-04-24 08:09 | NUR ---
LOPRESSOR 5MG IV GIVEN PER ORDER. HR DOWN TO 116 AT THIS TIME.
--- NOTE | 2020-04-24 09:07 | NUR ---
HR 130S, CARDIZEM BOLUS GIVEN PER DR. ELIZABETH. RATE INCREASED TO 15MG/HR.
--- NOTE | 2020-04-24 09:19 | NUR ---
ABG RESULTS CALLED TO DR. LALA. ORDERED TO FOLLOW WEANING PROTOCOL AT THIS TIME.
--- NOTE | 2020-04-24 09:21 | NUR ---
PLACED ON SIMV R 14, TV 500, PS 10, FIO2 40%, PEEP 5.
--- NOTE | 2020-04-24 09:57 | NUR ---
NUTRITION F/U CHART REVIEWED. SPOKE WITH NURSING. PT TOLERATING JEVITY 1.2 TUBE FEEDS AT 25 CC/HR. REMAINS ON VENT BUT POSSIBLE EXTUBATION TODAY PER NURSING REPORT. WILL MONITOR PT PROGRESS. RD FOLLOWING
--- NOTE | 2020-04-24 10:30 | NUR ---
HR 130S, RR IN 30S. PT AGITATED. PROPOFOL STARTED AT 5MCG/KG/MIN PER ORDER. PLACED BACK ON A/C BY RESPIRATORY PER DR. LALA'S ORDER. DR. LALA WANTS PT ON LOW DOSE SEDATION AT THIS TIME.
--- NOTE | 2020-04-24 11:37 | NUR ---
DR. LALA AT BEDSIDE. INCREASED FIO2 TO 50% AT THIS TIME.
--- NOTE | 2020-04-24 13:15 | NUR ---
CALL RECEIVED FROM CARMELA IQBAL, PT'S SPOUSE. PASSCODE VERIFIED. BRIEF UPDATE GIVEN. PT STILL HAS FEVER 102.0. TYLENOL SUPPOSITORY GIVEN PER ORDERS. ICE PACKS PLACED UNDER ARMS AND GROIN. MOTHER AT BEDSIDE. WILL CONTINUE TO MONITOR.
--- NOTE | 2020-04-24 13:23 | NUR ---
SPOKE WITH LAURENCE SOLIS WITH DR. ELIZABETH REGARDING FAMILY MEDICINE CONSULT. DR. MCGRATH AWARE OF CONSULT.
--- NOTE | 2020-04-24 13:50 | NUR ---
PLACED ON SIMV, R10, TV 500, PS 10 FIO2 50% AND PEEP 5. PT ON LIGHT SEDATION. HR 120S SINUS TACHYCARDIA. WILL CONTINUE TO MONITOR.
--- NOTE | 2020-04-24 15:11 | NUR ---
10MEQ OF KCL GIVEN AT THIS TIME PER PROTOCOL.
--- NOTE | 2020-04-24 15:51 | NUR ---
PT APPEARS TO BE ON HER MENSTRUAL CYCLE. DESHPANDE CATHETER CARE PROVIDED AT THIS TIME. COMPLETE LINEN CHANGE PROVIDED. PULLED UP AND REPOSITIONED FOR COMFORT. BACK ON AC, R-14, TV500, FIO2 50%, PEEP 5. HR 115 SINUS TACHYCARDIAL. PROPOFOL UP TO 30MCG/KG/MIN. PT RESTING COMFORTABLY. WILL CONTINUE TO MONITOR.
--- NOTE | 2020-04-24 17:49 | NUR ---
PT RESTING COMFORTABLY. OFF CLEVIPREX. NITRO AT 15MCG/MIN AT THIS TIME. BP 131/56, HR 94 NORMAL SINUS. TEMP 100.9. NO FURTHER NEEDS AT THIS TIME. WILL CONTINUE TO MONITOR.
--- NOTE | 2020-04-24 19:30 | NUR ---
PT SEDATED, OPENS EYES TO STIMULI, ETT PATENT TO VENT ON A/C, LUNGS CLEAR, RIGHT IJ CVL INTACT WITH IVF'S INFUSING, MIDSTERNAL AND SUBSTERNAL DRESSINGS INTACT WITH CHEST TUBE AND JANAK DRAIN X2 INTACT, RIGHT RADIAL A-LINE INTACT, DESHPANDE PATENT TO BSD, ALEC'S AND SCD'S TO BILAT LOWER LEGS, VITALS STABLE
--- NOTE | 2020-04-24 23:00 | NUR ---
PT REMAINS SEDATED, B/P DECREASED FROM SCHEDULED METOPROLOL, INCREASES WITH STIMULATION, WILL CONT TO MONITOR
[2020-04-25] VITALS (94 sets, daily range): BP systolic 98–192; BP diastolic 45–91
--- NOTE | 2020-04-25 03:00 | NUR ---
PT RESTING QUIETLY, REMAINS SEDATED, VITALS STABLE
--- NOTE | 2020-04-25 05:00 | NUR ---
DRSG CHANGED TO SUBSTERNAL, BATHED PER STAFF, PT AWAKE, FOLLOWS COMMANDS, NO C/O, WILL CONT TO MONITOR
[2020-04-25 06:05] LABS: BASOPHILS 0.1 % (0-2); EOSINOPHILS 0.5 % (0-7); HEMATOCRIT 24.1 % (36.0-48.0); IMMATURE GRANULOCYTES 0.3 % (0-5); LYMPHOCYTES 14.2 % (15-50); MCH 24.1 pg (26.0-34.0); MCHC 30.3 g/dL (31.0-37.0); MCV 79.5 fL (80.0-100.0); MEAN PLATELET VOLUME 10.2 fL (7.4-10.4); MONOCYTES 8.9 % (2-11); PLATELET COUNT 146 10x3/uL (130-400); RBC 3.03 10x6/uL (4.00-5.40); RDW 16.2 % (11.5-14.5); WBC 17.6 10x3/uL (4.8-10.8)
[2020-04-25 06:33] LABS: BILIRUBIN NEGATIVE (NEGATIVE); GLUCOSE NEGATIVE (NEGATIVE); KETONE NEGATIVE (NEGATIVE); NITRITE NEGATIVE (NEGATIVE); SPECIFIC GRAVITY 1.015 (1.005-1.020); UROBILINOGEN NORMAL (NORMAL)
[2020-04-25 06:47] LABS: ALBUMIN 1.8 g/dL (3.4-5.0); ALKALINE PHOSPHATASE 57 U/L (30-120); ALT (SGPT) 21 U/L (10-68); BILIRUBIN - TOTAL 1.01 mg/dL (0.2-1.3); CALC OSMOLALITY 288 mosm/kg (275-300); CALCIUM 8.7 mg/dL (8.5-10.1); CARBON DIOXIDE 26.4 mmol/L (21.0-32.0); CHLORIDE - SERUM 109 mmol/L (98-107); CREATININE - SERUM 0.5 mg/dL (0.6-1.3); GLUCOSE 123 mg/dL (74-106); MAGNESIUM - SERUM 2.4 mg/dL (1.8-2.4); PHOSPHOROUS 3.3 mg/dL (2.5-4.9); POTASSIUM - SERUM 3.4 mmol/L (3.5-5.1); SODIUM 143 mmol/L (136-145); UREA NITROGEN 21 mg/dL (7-18); eGFR NON AFRICAN AMERICAN > 90 mL/min (90-120)
--- NOTE | 2020-04-25 07:00 | NUR ---
SHIFT REPORT RECEIVED. CONTINUES ON VENT. AC, R 14, TV 500, FIO2 40%, PEEP 5. ETT 7.0 24 A LIP. PROPOFOL AT 25MCG/KG/MIN. PLASMOLYTE AT 30ML/HR, CARDIZEM AT 10ML/HR, AND FENTANYL AT 75MCG/MIN. OPENS EYES TO VOICE AND FOLLOWS SIMPLE COMMANDS. MIDSTERNAL INCISION C/D/I. SUBTERNAL CT, JANAK DRAINS WITH DRESSING C/D/I. CT TO 20CM SUCTION WITH NO AIR LEAK NOTED. DESHPANDE CATHETER IN PLACE WITH KRISTAL URINE NOTED. WRIST RESTRAINTS REMAIN IN PLACE PER ORDER. SAFETY MEASURES IN PLACE. NURSE AT BEDSIDE FOR CLOSE MONITORING.
[2020-04-25 07:09] LABS: C-REACTIVE PROTEIN 35.7 mg/dL (0.0-0.9)
[2020-04-25 07:10] LABS: HEMOGLOBIN 7.3 g/dL (12-16)
--- NOTE | 2020-04-25 07:20 | NUR ---
H&H 7.3 AND 24.1, K 3.4. DR. ELIZABETH NOTIFIED.
--- NOTE | 2020-04-25 07:20 | NUR ---
H&H 7.3 AND 24.1, K 3.4. DR. ELIZABETH NOTIFIED.
--- NOTE | 2020-04-25 07:39 | NUR ---
20KCL INFUSING AT THIS TIME PER ORDER.
--- NOTE | 2020-04-25 08:42 | NUR ---
SECOND 20MEQ KCL INITIATED AT THIS TIME.
--- NOTE | 2020-04-25 09:01 | NUR ---
CALL RECEIVED FROM PT'S MOTHER. PASS CODE VERIFIED. BRIEF UPDATE GIVEN. PT RESTING COMFORTABLY. ON 15MCG/KG/MIN OF PROPOFOL. HR 88, BP 133/59, RR 22, O2 SAT 100% ON 40%. NO FURTHER NEEDS AT THIS TIME. WILL CONTINUE TO MONITOR.
--- NOTE | 2020-04-25 09:31 | NUR ---
UNIT PRBC'S INITIATED AT THIS TIME.
--- NOTE | 2020-04-25 09:38 | NUR ---
VENT SETTING CHANGED AT THIS TIME BY RT. A/C, R 6, TV 500, FIO 40%, PEEP 5. PT CALM AT THIS TIME. WILL CONTINUE TO MONITOR.
[2020-04-25 10:24] LABS: ERYTHROCYTE SEDIMENTATION RATE 117 mm/hr (0-20)
--- NOTE | 2020-04-25 11:21 | NUR ---
UNIT OF PRBC'S FINISHED INFUSING AT THIS TIME.
--- NOTE | 2020-04-25 11:48 | NUR ---
SWITCHED TO CPAP TRIAL. SEDATION OFF. BP INCREASED TO 167/80. NITROGLYCERIN INITIATED.
--- NOTE | 2020-04-25 12:22 | NUR ---
PT DID NOT TOLERATE CPAP AT THIS TIME. BP INCREASED SIGNIFICANTLY. SEDATION HAD TO BE TURNED BACK ON. CLEVIPREX AND NITRO IN USE FOR BP MANAGEMENT. DR. ELIZABETH AWARE. SEE IV FLOWSHEET FOR DRIP RATES. WILL CONTINUE TO MONITOR.
--- NOTE | 2020-04-25 13:32 | NUR ---
CPAP TRIAL WITH TV 500, PS 15, PEEP 5, FIO2 40%. BP 144/67, HR 117. WILL CONTINUE TO MONITOR.
--- NOTE | 2020-04-25 15:50 | NUR ---
EXTUBATED AT THIS TIME. PLACED ON 5L O2 VIA NC.
--- NOTE | 2020-04-25 19:20 | NUR ---
PT A/OX4, LUNGS CLEAR, 02 @ 2L VIA N/C, RIGHT IJ CVL INTACT WITH IVF'S INFUSING, RIGHT RADIAL A-LINE INTACT, MIDSTERNAL AND SUBSTERNAL DRESSINGS INTACT WITH DRAINS IN PLACE, DESHPANDE PATENT TO BSD, ALEC'S AND SCD'S TO BILAT LOWER LEGS, NO C/O @ THIS TIME
--- NOTE | 2020-04-25 21:00 | NUR ---
PT TAKING ICE CHIPS WITHOUT DIFFICULTY, NO COUGHING NOTED, WILL CONT TO MONITOR
--- NOTE | 2020-04-25 22:10 | MORECARE ---
CASE MANAGEMENT DISCHARGE SUMMARY PATIENT: MARIO ALBERTO IQBAL UNIT: [id number] ADM DATE: 04/20/20 AGE: 40 : 82 SEX: F ROOM/BED: [facility] AUTHOR: ALYSSA PAZ PHYSICIAN: REFERRING PHYSICIAN: LUPE MCCAIN M.D. DATE OF SERVICE: 04/25/20 Discharge Plan Patient Name: MARIO ALBERTO IQBAL Facility: [facility]:[place] : 1980 Planned Disposition: Anticipated Discharge Date: Discharge Date: Expected LOS: Initial Reviewer: [email or web address] Initial Review Date: 04/20/2020 Generated: 04/25/20 11:09 pm DCPIA - Discharge Planning Initial Assessment Updated by [email or web address]: Mirna Mccartney on 04/25/20 10:09 pm * Is the patient Alert and Oriented? Yes * How many steps to enter\exit or inside your home? * PCP NO PCP * Pharmacy [facility] * Preadmission Environment Home with Family * ADLs Independent * Equipment None * List name and contact numbers for known caregivers / representatives who currently or will assist patient after discharge: CARMELA LOPEZ -[facility]- [phone] * Verbal permission to speak to the caregivers and representatives has been obtained from the patient. Yes * Community resources currently utilized None * Additional services required to return to the preadmission environment? No * Can the patient safely return to the preadmission environment? Yes * Has this patient been hospitalized within the prior 30 days at any hospital? No Patient Name: MARIO ALBERTO IQBAL Page [id number] at 2210 All edits/amendments must be made on the electronic document DICTATION DATE: 04/25/202208 MILLING MACHINE SET UP OPERATOR: MADINA 04/25/202208 RPT#: [id number] DC DATE: STATUS: ADM IN [facility] [address] [place] [address] END OF REPORT
--- NOTE | 2020-04-25 22:23 | MORECARE ---
CASE MANAGEMENT DISCHARGE SUMMARY PATIENT: MARIO ALBERTO IQBAL UNIT: [id number] ADM DATE: 04/20/20 AGE: 40 : 84 SEX: F [facility] AUTHOR: BRANDI,DOC PHYSICIAN: REFERRING PHYSICIAN: LUPE MCCAIN M.D. 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 CM educated patient on the CM role and verbal consent given by patient to complete assessment. Patient lives at home with family. Patient is independent. At discharge patient plans to return home and feels this is a safe discharge. CM discussed availability of home health, rehab services, and medical equipment. Patient will have family to transport home. Patient denied known discharge needs at this time. Uncertain of any d/c needs may need walk test for 02. CM will continue to follow and will assist as needed with dc plans/needs Planner Intern: Mirna Mccartney DCPIA - Discharge Planning Initial Assessment Updated by [email or web address]: Mirna Mccartney on 04/25/20 10:09 pm * Is the patient Alert and Oriented? Yes * How many steps to enter\exit or inside your home? * PCP NO PCP * Pharmacy [facility] * Preadmission Environment Home with Family * ADLs Independent * Equipment None * List name and contact numbers for known caregivers / representatives who currently or will assist patient after discharge: CARMELA LOPEZ -[facility]- [phone] * Verbal permission to speak to the caregivers and representatives has been obtained from the patient. Yes * Community resources currently utilized None * Additional services required to return to the preadmission environment? No * Can the patient safely return to the preadmission environment? Yes * Has this patient been hospitalized within the prior 30 days at any hospital? No Last DP export: 04/25/20 9:10 p Patient Name: MARIO ALBERTO IQBAL Page 01101 at 2223 All edits/amendments must be made on the electronic document DICTATION DATE: 04/25/202221 FINISHING AND SHIPPING SUPERVISOR: MADINA 04/25/202221 RPT#: [id number] DC DATE: STATUS: ADM IN [facility] [address] [place] [address] END OF REPORT
[2020-04-26] VITALS (70 sets, daily range): BP systolic 121–161; BP diastolic 53–76
--- NOTE | 2020-04-26 01:17 | NUR ---
RESTING QUIETLY WITH EYES CLOSED, VITALS STABLE
[2020-04-26 05:10] LABS: BASOPHILS 0.1 % (0-2); EOSINOPHILS 0.8 % (0-7); HEMATOCRIT 27.1 % (36.0-48.0); HEMOGLOBIN 8.4 g/dL (12-16); IMMATURE GRANULOCYTES 0.5 % (0-5); LYMPHOCYTES 12.3 % (15-50); MCH 24.9 pg (26.0-34.0); MCV 80.2 fL (80.0-100.0); MEAN PLATELET VOLUME 10.2 fL (7.4-10.4); MONOCYTES 9.1 % (2-11); NEUTROPHILS 77.2 % (40-80); RBC 3.38 10x6/uL (4.00-5.40); RDW 16.2 % (11.5-14.5); WBC 17.4 10x3/uL (4.8-10.8)
[2020-04-26 05:14] LABS: PLATELET COUNT 199 10x3/uL (130-400)
[2020-04-26 05:31] LABS: ALBUMIN 1.8 g/dL (3.4-5.0); ALKALINE PHOSPHATASE 65 U/L (30-120); ALT (SGPT) 22 U/L (10-68); BILIRUBIN - TOTAL 0.68 mg/dL (0.2-1.3); CALC OSMOLALITY 285 mosm/kg (275-300); CALCIUM 8.5 mg/dL (8.5-10.1); CARBON DIOXIDE 26.5 mmol/L (21.0-32.0); CHLORIDE - SERUM 106 mmol/L (98-107); CREATININE - SERUM 0.5 mg/dL (0.6-1.3); GLUCOSE 132 mg/dL (74-106); POTASSIUM - SERUM 3.5 mmol/L (3.5-5.1); PROTEIN - SERUM 6.3 g/dL (6.4-8.2); SODIUM 142 mmol/L (136-145); UREA NITROGEN 16 mg/dL (7-18); eGFR NON AFRICAN AMERICAN > 90 mL/min (90-120)
--- NOTE | 2020-04-26 05:45 | NUR ---
PT BATHED, SAT UP ON SIDE OF BED, STATES SHE WANTS TO GET UP IN CHAIR, PT WEAK, STOOD WITH MODERATE ASSIST, UP IN CHAIR AT BEDSIDE, WILL CONT TO MONITOR
--- NOTE | 2020-04-26 10:07 | NUR ---
CVL DRESSING CHANGED AT THIS TIME PER PROTOCOL. SPOUSE AT BEDSIDE. NO FURTHER NEEDS AT THIS TIME.
--- NOTE | 2020-04-26 11:04 | NUR ---
Nutrition Follow-up: POD 5 CABG. Extubated yesterday. Diet: Clear Liquid AAT Wt: 221# (04/26); 210.5# (04/20) Last BM: 04/20 per chart Labs noted: Glu 132, Alb 1.8 Meds noted: Colace, Protonix -Rec ADAT as medically feasible. -Monitor wt. -RD following.
--- NOTE | 2020-04-26 11:10 | NUR ---
RIGHT RADIAL PRAMOD AND DESHPANDE CATHETER DC'D AT THIS TIME. PT TOLERATED WELL. SITTING UP IN CHAIR. NO FURTHER NEEDS AT THIS TIME. WILL CONTINUE TO MONITOR.
--- NOTE | 2020-04-26 12:37 | NUR ---
MEDIALSTINAL CT REMOVED AT THIS TIME PER ORDER. IODINE OINTMENT APPLIED, COVERED WITH 4X4 AND TAGEDERM DRESSING. NOTICED 2 SKIN TEAR TO RIGHT ABDOMEN. 4X4 GAUCE PLACED ON IT TO KEEP IN CLEAN. TPM WIRED COILED AND SECURED. PT TOLERATED WELL. SPOUSE AT BEDSIDE. WILL CONTINUE TO MONITOR.
--- NOTE | 2020-04-26 12:54 | NUR ---
ALEXANDRA LINDSEY'Gopi AT THIS TIME.
--- NOTE | 2020-04-26 13:36 | NUR ---
DR. LALA UNIT. ORDERED VANC 1MG IV Q12.
--- NOTE | 2020-04-26 14:10 | NUR ---
NITROGLYCERIN DC'D AT THIS TIME.
--- NOTE | 2020-04-26 14:49 | TEE ---
PATIENT:MARIO ALBERTO IQBAL MEDICAL RECORD: [id number] LOCATION:[place] [address] AGE OF PATIENT: 40 ADMISSION DATE: 04/20/20 SEX: F REFERRING PHYSICIAN: INTERPRETING PHYSICIAN: MEGAN NELSON MD TRANSESOPHAGEAL ECHOCARDIOGRAM Date: 04/21/20 AMADO CHARGE Y INDICATIONS: CABG PREMEDICATIONS: PATIENT'S RESPONSE PROCEDURE DOPPLER MEASUREMENTS: LVIT LA PA RA LVOT RVOT Asc. Ao AV Gradient Peak AV Mean AV Area MV Gradient Peak MV Mean MV Area INTERPRETATION: Doppler: 2-D: COLOR FLOW DOPPLER NORMAL SALINE STUDY: MISCELLANOUS: DIAGNOSIS: PLAN: Regional Sales Representative:Genevieve Nelsno Envelope Patternmaker: Aldo WISEMAN COMMENTS: DATE OF SERVICE: 04/25/2020 PROCEDURE: Transesophageal echocardiogram and surgery. IMPRESSION: The patient had an ejection fraction of 50% prior to CABG with trace mitral regurgitation and trace tricuspid regurgitation. Post-bypass ejection fraction is 55%. The patient still had trace tricuspid and trace mitral regurgitation without significant change in valvular status with TRANSESOPHAGEAL ECHOCARDIOGRAM REPORT [id number] UMAIR IQBAL mild increase in left ventricular systolic function. TRANSINT:[id number] Voice Confirmation ID: [id number] DOCUMENT ID: [id number] at 1449 CC: [id number] DICTATION DATE: 04/25/20 1051 DBA: 04/25/20 1124 ADM IN [facility] [address] [place] [address]
--- NOTE | 2020-04-26 15:36 | NUR ---
AUBRIE SOLIS NOTIFIED OF CONSULT.
--- NOTE | 2020-04-26 19:11 | NUR ---
RUPAL TO DC CVL PER DR. ELIZABETH.
--- NOTE | 2020-04-26 19:15 | NUR ---
PT A/OX4, LUNGS CLEAR, O2 @ 3L VIA N/C, LEFT PICC INTACT WITH IVF'S INFUSING, MIDSTERNAL AND SUBSTERNAL DRESSINGS INTACT WITH JANAK DRAINS COMPRESSED, RIGHT IJ CVL D/C'D PER ORDERS, NO C/O AT THIS TIME
[2020-04-27] VITALS (24 sets, daily range): BP systolic 121–156; BP diastolic 54–90
--- NOTE | 2020-04-27 | NUR ---
GIVEN SALTINE CRACKERS FOR C/O INDIGESTION, VITALS STABLE
--- NOTE | 2020-04-27 01:36 | NUR ---
PT SITTING UP IN BED WATCHING TV WITH NO C/O, WILL CONT TO MONITOR
--- NOTE | 2020-04-27 05:30 | NUR ---
PT UP TO CHAIR AT BEDSIDE, BATHED SELF WITH MIN ASSIST, NO DISTRESS NOTED
[2020-04-27 06:29] LABS: C-REACTIVE PROTEIN 17.9 mg/dL (0.0-0.9); CALC OSMOLALITY 274 mosm/kg (275-300); CALCIUM 8.6 mg/dL (8.5-10.1); CARBON DIOXIDE 29.2 mmol/L (21.0-32.0); CHLORIDE - SERUM 103 mmol/L (98-107); CREATININE - SERUM 0.5 mg/dL (0.6-1.3); GLUCOSE 126 mg/dL (74-106); POTASSIUM - SERUM 3.1 mmol/L (3.5-5.1); SODIUM 137 mmol/L (136-145); eGFR NON AFRICAN AMERICAN > 90 mL/min (90-120)
[2020-04-27 06:30] LABS: UREA NITROGEN 10 mg/dL (7-18)
--- NOTE | 2020-04-27 07:00 | NUR ---
AWAKE AND ALERT SKIN WARM AND DRY. CHEST AND SUBSTERNAL DRESSINGS DRY AND INTACT. JANAK DRAINS X 2 WITH MINIMAL DRAINAGE. BOTH BULBS COMPRESSED. SERSANG DRAINAGE IN CONTAINERS. IV LEFT UPPER ARM PICC INFUSING WITH CARDIZEM 10 MG HOUR. PLASAMALYTE AT 30 ML HOUR. MONITOR SR. UP IN CHAIR AT BEDSIDE.
[2020-04-27 07:03] LABS: BASOPHILS 0.2 % (0-2); EOSINOPHILS 1.6 % (0-7); HEMATOCRIT 26.6 % (36.0-48.0); HEMOGLOBIN 8.1 g/dL (12-16); IMMATURE GRANULOCYTES 0.5 % (0-5); LYMPHOCYTES 22.9 % (15-50); MCH 24.6 pg (26.0-34.0); MCHC 30.5 g/dL (31.0-37.0); MCV 80.9 fL (80.0-100.0); MEAN PLATELET VOLUME 10.3 fL (7.4-10.4); MONOCYTES 11.2 % (2-11); NEUTROPHILS 63.6 % (40-80); PLATELET COUNT 213 10x3/uL (130-400); RBC 3.29 10x6/uL (4.00-5.40); RDW 16.3 % (11.5-14.5)
[2020-04-27 07:28] LABS: WBC 12.6 10x3/uL (4.8-10.8)
--- NOTE | 2020-04-27 08:00 | NUR ---
AMBULATED TO BATHROOM, TOLERATED FAIR. SOME SHORTNESS OF BREATH NOTED. ALEC ON LOWER LEGS. SMALL BM, VOIDED. BREAKFAST TRAY SERVED ATE FAIR. ENCOURAGE INCENTIVE SPIROMETRY AND FLUTTER VALVE.
--- NOTE | 2020-04-27 10:00 | NUR ---
AMBULATED IN [place] WITH PHSYCIAL THERAPY. TOLERATED FAIR.
--- NOTE | 2020-04-27 11:00 | NUR ---
MOTHER HERE. LUNCH TRAY SERVED.
--- NOTE | 2020-04-27 13:47 | NUR ---
AMBULATE IN [place] WITH PHYSICAL THERAPY. RETURNED TO BED. COUGHING AND DEEP BREATHING IMPROVED. AMBULATING TO BATHROOM. STILL ON PER PERIOD. CARDIZEM CONTINUES AT 10 MG AN HOUR. PLASAMALYTE AT 30 ML HOUR. MONITOR SR. ATE HALF OF LUNCH.
--- NOTE | 2020-04-27 15:00 | NUR ---
RESTING IN BED, NAPPING AT INTERVALS. NO DISTRESS DENIES PAIN. JANAK DRAINS X 2 WITH MINIMAL DRAINAGE. CARDIZEM CONTINUES AT 10 MG AN HOUR. MONITOR SR.
--- NOTE | 2020-04-27 17:00 | NUR ---
AMBULATED TO BATHROOM, STILL UNSTEADY. SLOW MOVING. MOTHER AT BEDSIDE. UPDATE GIVEN. MONITOR SR. DENIES PAIN. DINNER TRAY SERVED ATE FAIR. HEAD OF BED ELEVATED. CARDIZEM CONTINOUS AT 10 MG HOUR. PLASAMALYTE INFUSING AT 30 ML HOUR. CONTINUES TO USE INCENTIVE SPIROMETRY AND FLUTTER VALVE.
--- NOTE | 2020-04-27 19:00 | NUR ---
ASSESSMENT COMPLETED. SEE FLOWSHEET FOR ALL FINDINGS. PT A/OX4, DENIES ANY DISCOMFORT AT THIS TIME. NSR ON CM WITH HR AT 85BPM. LUNG SOUNDS DIMINISHED TO LLB, UNLABORED. O2SAT 95% VIA 2L NC. HOB UP. CALL LIGHT IN REACH. BEDSIDE TABLE IN REACH. CONT TO MONITOR.
--- NOTE | 2020-04-27 20:10 | NUR ---
MOTHER AT BEDSIDE. UNDATE AND QUESTIONS ANSWERED.
--- NOTE | 2020-04-27 21:00 | NUR ---
ASSISTED TO BATHROOM. VOIDS WITHOUT DIFFICULTY. BACK TO BED, SOB NOTED. PT RESPOSITIONED SELF IN BED. HOB UP. ENCOUREGED TO TAKE SLOW DB. PT OBLIGED. CALL LIGHT AND BEDSIDE TABLE IN REACH. CONT TO MONITOR.
--- NOTE | 2020-04-27 23:00 | NUR ---
REASSESSMENT COMPLETED PER FLOWSHEET. NO ACUTE CHANGES NOTED IN PT'S STATUS. VSS. CPOC.
[2020-04-28] VITALS (16 sets, daily range): BP systolic 121–167; BP diastolic 54–84
--- NOTE | 2020-04-28 00:15 | NUR ---
PT ANXIOUS AND C/O PAIN 8/10 ON SCALE, PERCOCET-10 1TAB GIVEN PER ORDER. REPOSITIONED SELF FOR COMFORT. HOB UP. CALL LIGHT IN REACH. CPOC.
--- NOTE | 2020-04-28 01:15 | NUR ---
PT RESTING QUIETLY WITHOUT SIGNS OF DISTRESS. VSS. CPOC.
--- NOTE | 2020-04-28 03:00 | NUR ---
REASSESSMENT COMPLETED. SEE FLOWSHEET FOR ALL FINDINGS. PT RESTING QUIETLY WITHOUT DISTRESS AT THIS TIME. ST ON CM WITH HR AT 105BPM. NO NEEDS VOICES. CPOC.
[2020-04-28 05:59] LABS: BASOPHILS 0.5 % (0-2); EOSINOPHILS 2.3 % (0-7); HEMATOCRIT 27.2 % (36.0-48.0); HEMOGLOBIN 8.2 g/dL (12-16); IMMATURE GRANULOCYTES 0.5 % (0-5); LYMPHOCYTES 33.3 % (15-50); MCH 24.5 pg (26.0-34.0); MCHC 30.1 g/dL (31.0-37.0); MCV 81.2 fL (80.0-100.0); MEAN PLATELET VOLUME 9.8 fL (7.4-10.4); NEUTROPHILS 51.4 % (40-80); PLATELET COUNT 237 10x3/uL (130-400); RBC 3.35 10x6/uL (4.00-5.40); RDW 16.4 % (11.5-14.5); WBC 9.9 10x3/uL (4.8-10.8)
--- NOTE | 2020-04-28 06:00 | NUR ---
TOTAL BATH COMPLETED. CHG DONE. SUBSTERNAL DRESSING CHANGED PER ORDER. PT EVA WELL. ASSISTED TO CHAIR. PT EVA WELL. HR AND RR GET UP WITH EXERTION. ENCOURAGED TO TAKE SLOW DB. PT STATES THAT HELPS TO CALM HER DOWN. CALL LIGHT IN REACH. CPOC.
[2020-04-28 06:10] LABS: CALC OSMOLALITY 271 mosm/kg (275-300); CALCIUM 8.6 mg/dL (8.5-10.1); CARBON DIOXIDE 28.8 mmol/L (21.0-32.0); CHLORIDE - SERUM 105 mmol/L (98-107); CREATININE - SERUM 0.5 mg/dL (0.6-1.3); GLUCOSE 101 mg/dL (74-106); MAGNESIUM - SERUM 1.7 mg/dL (1.8-2.4); PHOSPHOROUS 3.7 mg/dL (2.5-4.9); POTASSIUM - SERUM 3.3 mmol/L (3.5-5.1); SODIUM 137 mmol/L (136-145); UREA NITROGEN 8 mg/dL (7-18); eGFR NON AFRICAN AMERICAN > 90 mL/min (90-120)
--- NOTE | 2020-04-28 07:15 | NUR ---
RECEIVED REPORT FROM OFF-GOING RN. PATIENT IS UP IN CHAIR. IN GOOD SPIRITS. NO C/O.
--- NOTE | 2020-04-28 07:50 | NUR ---
SHIFT ASSESSMENT PERFORMED. DENIES PAIN OR SOB. REMAINS UP IN CHAIR. BREAKFAST SERVED.
--- NOTE | 2020-04-28 09:15 | NUR ---
AMBULATING IN ROSE WITH PT. DENIES SOB. GAIT STEADY.
--- NOTE | 2020-04-28 10:00 | NUR ---
TRIAL OFF O2 X 5 MINS. SPO2 88 TO 91%. RESUMED AT PREVIOUS RATE OF 2L/M VIA NC.
--- NOTE | 2020-04-28 10:40 | NUR ---
EPICARDIAL PACEMAKER WIRES AND RIGHT AND LEFT PLEURAL DARIUS DRAINS REMOVED BY DR. ELIZABETH. ALL INTACT. PATIENT TOLERATED WELL. BETADINE OINTMENT, STERILE 4X4S AND TAPE APPLIED. INSTRUCTIONS ON BEDREST FOR 1 HOUR. AT BEDSIDE.
--- NOTE | 2020-04-28 11:23 | NUR ---
Nutrition Follow-up: POD 7 CABG. Ate ~50% of breakfast this AM. Diet: Regular PO intake: 44% avg x last 4 meals Wt: 223# (04/28); 221# (04/26); 210.5# (04/20) Last BM: 04/27 Labs noted: K+ 3.3, Mg 1.7 Meds noted: Lasix, KDur, Colace -Encourage PO intake and honor food preferences. -Offer nutrition supplements. -Monitor wt. -RD following.
--- NOTE | 2020-04-28 11:25 | NUR ---
REPORT CALLED TO DARIELA ON MED II. PATIENT'S INFORMED OF NEW ROOM NUMBER. PATIENT TRANSPORTED TO 2124 VIA WHEELCHAIR ON AT 2LM.
--- NOTE | 2020-04-28 12:23 | NUR ---
TRANSFER FROM CVICU BY W/Doyle VILLALTA TO ROOM. CALL LIGHT IN REACH. WILL CONT. PLAN OF CARE.
--- NOTE | 2020-04-28 13:24 | NUR ---
UP AMBULATING HALLWAY WITH PT ASSIST.
--- NOTE | 2020-04-28 19:27 | NUR ---
INITIAL ROUNDS COMPLETED. PT DENIED ANY DISCOMFORT. SPOUSE AT BEDSIDE.
--- NOTE | 2020-04-28 22:35 | NUR ---
ASSESSMENT COMPLETED AT [address] PER CM HR 131. ALERT AND ORIENTED TO PERSON,PLACE AND TIME. MCCONNELL. 02 2LNC. LUNGS DIMINISHED IN BASES BILAT. LAC PICC SL. ABD SOFT WITH ACTIVE BS NOTED. STERNAL AND ABD SRESSING CLEAN, DRY AND INTACT. PALPABLE PERIPHERAL PULSES. ALEC HOSE IN USE. PM MEDS GIVEN. PT CURRENTLY RESTING WTH EYES CLOSED. RESP EVEN AND REGULAR. BIPAP IN USE. SR UP X1, CALL LIGHT WITHIN REACH.
--- NOTE | 2020-04-29 00:13 | NUR ---
PT AWAKE; DENIES ANY DISCOMFORT. CALL LIGHT WITHIN REACH.
[2020-04-29 00:48] VITALS: BP 135/78
--- NOTE | 2020-04-29 02:02 | NUR ---
PT AWAKE; PLAYING ON PHONE. NO DISTRESS NOTED. ST PER CM HR 121. SR UP X1, CALL LIGHT WITHIN REACH.
--- NOTE | 2020-04-29 04:13 | NUR ---
PT RESTING WITH EYES CLOSED. RESP EVEN AND REGULAR. CALL LIGHT WITHIN REACH.
[2020-04-29 04:46] VITALS: BP 155/73
--- NOTE | 2020-04-29 06:43 | NUR ---
PT RESTED WELL DURING SHIFT. ST PER CM. PT DENIED ANY DISCOMFORT. NEEDS MET; WILL CONTINUE TO MONITOR.
--- NOTE | 2020-04-29 07:00 | NUR ---
RECEIVED REPORT. ASSUMED CARE OF PATIENT. 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 RESTING WITH EYES CLOSED. RESP EVEN AND UNLABORED. CALL LIGHT WITHIN REACH. PATIENT REMAINS ON TELEMETRY, ST WITH RATE OF 115. NO DISTRESS.
[2020-04-29 07:07] LABS: BASOPHILS 0.4 % (0-2); EOSINOPHILS 1.6 % (0-7); HEMATOCRIT 26.3 % (36.0-48.0); IMMATURE GRANULOCYTES 0.8 % (0-5); LYMPHOCYTES 32.1 % (15-50); MCH 24.8 pg (26.0-34.0); MCHC 30.4 g/dL (31.0-37.0); MCV 81.4 fL (80.0-100.0); MEAN PLATELET VOLUME 9.7 fL (7.4-10.4); MONOCYTES 13.7 % (2-11); NEUTROPHILS 51.4 % (40-80); PLATELET COUNT 282 10x3/uL (130-400); RBC 3.23 10x6/uL (4.00-5.40); RDW 16.7 % (11.5-14.5); WBC 10.6 10x3/uL (4.8-10.8)
[2020-04-29 07:18] LABS: ALKALINE PHOSPHATASE 72 U/L (30-120); ALT (SGPT) 36 U/L (10-68); BILIRUBIN - TOTAL 0.49 mg/dL (0.2-1.3); CALCIUM 8.9 mg/dL (8.5-10.1); CARBON DIOXIDE 25.9 mmol/L (21.0-32.0); CHLORIDE - SERUM 108 mmol/L (98-107); CREATININE - SERUM 0.6 mg/dL (0.6-1.3); GLUCOSE 104 mg/dL (74-106); MAGNESIUM - SERUM 1.7 mg/dL (1.8-2.4); PROTEIN - SERUM 6.3 g/dL (6.4-8.2); SODIUM 141 mmol/L (136-145); eGFR NON AFRICAN AMERICAN > 90 mL/min (90-120)
[2020-04-29 07:27] LABS: CALC OSMOLALITY 277 mosm/kg (275-300); POTASSIUM - SERUM 3.8 mmol/L (3.5-5.1); UREA NITROGEN 4 mg/dL (7-18)
--- NOTE | 2020-04-29 09:06 | NUR ---
CALLED AND REQUESTED BETADINE FROM PHARMACY FOR DRESSING CHANGES.
[2020-04-29 09:41] VITALS: BP 170/88
--- NOTE | 2020-04-29 11:00 | NUR ---
PATIENT OOB AMBULATING AROUND UNIT WITH PT. PATIENT AMBULATED 250 FT WITHOUT DIFFICULTY. PT SIGNED OFF ON PATIENT.
[2020-04-29 12:15] VITALS: BP 143/78
--- NOTE | 2020-04-29 16:44 | NUR ---
RESTING WELL IN BED. NO VISITOR AT BEDSIDE. CALL LIGHT WITHIN REACH. PATIENT DENIES NEEDS. NO DISTRESS.
[2020-04-29 17:30] VITALS: BP 159/86
[2020-04-29 20:00] VITALS: BP 169/91
--- NOTE | 2020-04-29 22:33 | NUR ---
INITIAL ROUNDS COMPLETED AT 1914 HRS. PT DENIED ANY DISCOMFORT. ASSESSMENT COMPLETED AT [address] PER CM HR 104. ALERT AND ORIENTED TO PERSON, PLACE AND TIME. MCCONNELL. LAC PICC NOTED. DRESSING TO MID STERNUM AND ABD CLEAN, DRY AND INTACT. PALPABLE PERIPHERAL PULSES. PM MEDS GIVEN INCLUDING APRESOLINE 10MG PO FOR BP 169/91. PT CURRENTLY TALKING WITH CHILDREN ON THE PHONE. SR UP X1, CALL LIGHT WITHIN REACH.
--- NOTE | 2020-04-30 00:22 | NUR ---
PT RESTING WITH EYES CLOSED. RESP EVEN AND REGULAR. CALL LIGHT WITHIN REACH.
--- NOTE | 2020-04-30 01:13 | NUR ---
PT RESTING WITH EYES CLOSED. RESP EVEN AND REGULAR. SR UP X2, CALL LIGHT WITHIN REACH.
[2020-04-30 04:00] VITALS: BP 147/80
--- NOTE | 2020-04-30 04:31 | NUR ---
BOTH PORTS OF L UPPER ARM PICC OCCLUDED. IV STARTED #22 TO R HAND WITH ATTEMPT X1. VANCOMYCIN 1.25 GM/S50CC INFUSING AT 125CC/HR. PT DENIES ANY DISCOMFORT FORM IV SITE.
--- NOTE | 2020-04-30 05:55 | NUR ---
VSS THROUGHOUT NIGHT. SR/ST PER CM. PT DENIED ANY DISCOMFORT. NEEDS MET; WILL CONTINUE TO MONITOR.
[2020-04-30 06:09] LABS: BASOPHILS 0.4 % (0-2); EOSINOPHILS 1.6 % (0-7); HEMATOCRIT 24.7 % (36.0-48.0); IMMATURE GRANULOCYTES 0.9 % (0-5); LYMPHOCYTES 32.6 % (15-50); MCH 24.7 pg (26.0-34.0); MCHC 30.4 g/dL (31.0-37.0); MCV 81.3 fL (80.0-100.0); MEAN PLATELET VOLUME 9.7 fL (7.4-10.4); MONOCYTES 11.5 % (2-11); PLATELET COUNT 299 10x3/uL (130-400); RBC 3.04 10x6/uL (4.00-5.40); RDW 17.2 % (11.5-14.5); WBC 10.6 10x3/uL (4.8-10.8)
[2020-04-30 06:17] LABS: HEMOGLOBIN 7.5 g/dL (12-16)
[2020-04-30 06:32] LABS: CALC OSMOLALITY 277 mosm/kg (275-300); CARBON DIOXIDE 23.9 mmol/L (21.0-32.0); CHLORIDE - SERUM 111 mmol/L (98-107); CREATININE - SERUM 0.7 mg/dL (0.6-1.3); GLUCOSE 102 mg/dL (74-106); POTASSIUM - SERUM 3.8 mmol/L (3.5-5.1); SODIUM 141 mmol/L (136-145); UREA NITROGEN 5 mg/dL (7-18); eGFR NON AFRICAN AMERICAN > 90 mL/min (90-120)
--- NOTE | 2020-04-30 07:00 | NUR ---
RECEIVED REPORT. ASSUMED CARE OF PATIENT. CALL LIGHT WITHIN REACH. PATIENT SITTING UP IN BED WITH MED NEB TREATMENT. DENIES NEEDS. 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 BEDSIDE SHIFT REPORT COMPLETED. WHITE BOARD UPDATED. NO DISTRESS.
[2020-04-30 07:24] LABS: VANCOMYCIN - TROUGH 29.5 ug/mL (10.0-20.0)
--- NOTE | 2020-04-30 08:39 | NUR ---
MEDICATED FOR PAIN AT THIS TIME. PATIENT SITTING TO CHAIR AT BEDSIDE. CALL LIGHT WITHIN REACH.
--- NOTE | 2020-04-30 11:32 | NUR ---
WARM PACK PROVIDED TO PATIENT TO HELP EASE PAIN TO HER BACK. NO DISTRESS. REMAINS SITTING UP TO CHAIR AT BEDSIDE.
[2020-04-30 12:00] VITALS: BP 163/83
[2020-04-30 13:26] LABS: % SATURATION 6 % (15-55); IRON 16 ug/dl (35-150); TOTAL IRON BIND CAPACITY 237 ug/dl (260-445); UNSAT IRON BIND CAPACITY 221 ug/dl (150-375)
--- NOTE | 2020-04-30 14:46 | NUR ---
IST UNIT OF PRBCs INITIATED AT THIS TIME. 98.3, 149/76. NO DISTRESS.
--- NOTE | 2020-04-30 16:22 | NUR ---
PATIENT TOLERATING BLOOD TRANSFUSION WELL. PATIENT STATES SHE FEELS MUCH BETTER, LIKE SHE HAS SOME ENERGY. IST UNIT HAS ABOUT 100 ML FOR ADMINISTRATION LEFT TO INFUSE.
--- NOTE | 2020-04-30 16:58 | NUR ---
ICE PROVIDED UPON REQUEST.
--- NOTE | 2020-04-30 17:00 | NUR ---
PATIENT AWARE OF STOOL SPECIMEN NEEDED TO CHECK FOR OB.
--- NOTE | 2020-04-30 17:26 | NUR ---
2ND UNITS OF PRBCs INITIATED AT THIS TIME. TOLERATES BLOOD TRANSFUSION WELL. NO DISTRESS. CALL LIGHT WITHIN REACH.
--- NOTE | 2020-04-30 19:25 | NUR ---
INITIAL ROUNDS COMPLETED. PT SITTING IN CHAIR WITH BLOOD INFUSING. NO DISTRESS NOTED. CALL LIGHT WITHIN REACH.
[2020-04-30 21:04] VITALS: BP 144/98
--- NOTE | 2020-04-30 23:06 | NUR ---
ASSESSMENT COMPLETED AT 2005 HRS. 2ND UNIT OF PRBC'S COMPLETED. VSS. SR PER CM HR 91. ALERT AND ORIENTED TO PERON, PLACE AND TIME. MCCONNELL. LAC PICC FLUSHED WITH 20CC OF NS AFTER BLOOD ADMINISTRATION. LUNGS DIMINISHED IN BASES BILAT. MCCONNELL. PALPABLE PERIPHERAL PULSES. DRESSING TO STERNUM, ABD CLEAN,DRY AND INTACT. IV TO R HAND SL. PM MEDS GIVEN. IV TO R HAND DC'D WITH CATHETER INTACT. STOOL GUIAC SENT OT LAB AT 2255 HRS. PT CURRENTLY WATCHING TV, DENIES ANY DICOMFORT. CALL LIGHT WITHIN REACH.
--- NOTE | 2020-05-01 00:22 | NUR ---
TEMP NOW 100.9. TEMP AT 2130 98.7 POST 90 MINUTES AFTER BLOOD TRANSFUSION. TYLENOL 650MG PO GIVEN. APRESOLINE 10MG PO GIVEN FOR BP 165/103. LAB NOTIFIED.
[2020-05-01 00:30] VITALS: BP 163/104
--- NOTE | 2020-05-01 01:09 | NUR ---
SPOKE WITH Fany CHERRY APN REGARDING ELEVATED TEMP POST TRANSFUSION. NEW ORDERS RECEIVED AND NOTED.
--- NOTE | 2020-05-01 02:54 | NUR ---
PT RESTING WITH EYES CLOSED. RESP EVEN AND REGULAR. SR UP X1, CALL LIGHT WITHIN REACH.
[2020-05-01 04:07] VITALS: BP 162/90
--- NOTE | 2020-05-01 04:30 | NUR ---
PT RESTING WITH EYES CLOSED. RESP EVEN AND REGULAR. SR UP X1, CALL LIGHT WITHIN REACH.
--- NOTE | 2020-05-01 05:05 | NUR ---
PT REFUSED AM LAB STATING SHE WAS GOING HOME TODAY.
--- NOTE | 2020-05-01 06:20 | NUR ---
AFEBRILE THIS AM. DENIES ANY DISCOMFORT. NEEDS MET; WILL CONTINUE TO MONITOR.
--- NOTE | 2020-05-01 07:00 | NUR ---
RECEIVED REPORT. ASSUMED CARE OF PATIENT. CALL LIGHT WITHIN REACH. PATIENT RESTING WITH EYES CLOSED. RESP EVEN AND UNLABORED. CONTINUES ON TELEMETRY. BEDSIDE SHIFT REPORT COMPLETE. WHITE BOARD UPDATED. NO DISTRESS.
--- NOTE | 2020-05-01 07:40 | NUR ---
AM LINE DRAW FOR LABS COMPLETE AT THIS TIME AND SUBMITTED TO LAB.
[2020-05-01 07:53] LABS: BASOPHILS 0.4 % (0-2); EOSINOPHILS 1.6 % (0-7); IMMATURE GRANULOCYTES 0.5 % (0-5); LYMPHOCYTES 35.5 % (15-50); MCH 25.8 pg (26.0-34.0); MCHC 31.4 g/dL (31.0-37.0); MCV 82.1 fL (80.0-100.0); MONOCYTES 9.8 % (2-11); NEUTROPHILS 52.2 % (40-80); PLATELET COUNT 288 10x3/uL (130-400); RDW 17.6 % (11.5-14.5); WBC 9.2 10x3/uL (4.8-10.8)
[2020-05-01 07:55] LABS: HEMATOCRIT 34.4 % (36.0-48.0); HEMOGLOBIN 10.8 g/dL (12-16); RBC 4.19 10x6/uL (4.00-5.40)
[2020-05-01 08:08] LABS: CALC OSMOLALITY 275 mosm/kg (275-300); CALCIUM 8.6 mg/dL (8.5-10.1); CARBON DIOXIDE 27.4 mmol/L (21.0-32.0); CHLORIDE - SERUM 107 mmol/L (98-107); CREATININE - SERUM 0.6 mg/dL (0.6-1.3); GLUCOSE 103 mg/dL (74-106); POTASSIUM - SERUM 3.9 mmol/L (3.5-5.1); SODIUM 140 mmol/L (136-145); UREA NITROGEN 4 mg/dL (7-18); VANCOMYCIN - RANDOM 3.5 ug/mL (10.0-20.0); eGFR NON AFRICAN AMERICAN > 90 mL/min (90-120)
--- NOTE | 2020-05-01 09:43 | NUR ---
PATIENT REFUSING TELEMETRY AT THIS TIME. PATIENT IS READY TO GO HOME. NO DISCHARGE ORDERS ISSUED AT THIS TIME.
[2020-05-01 10:33] VITALS: BP 162/85
--- NOTE | 2020-05-01 14:33 | NUR ---
DRESSING CHANGES COMPLETED TO STERNUM AND EPIGASTRIC AREA AT THIS TIME. NO DISTRESS. TOELRATED WOUND CARE WELL. INCISION IS APPROXIMATED. TELEMETRY RETURNED TO HRIS MANAGER AT THIS TIME. NO DISTRESS.
[2020-05-01] MEDS ORDERED: BAYER CHEWABLE81 MG PO (15:43)
[2020-05-01] MEDS ORDERED: PRAVACHOL40 MG PO (15:43)
[2020-05-01] MEDS ORDERED: TOPROL XL50 MG PO (15:43)
[2020-05-01] MEDS ORDERED: DILTIAZEM 24HR120 M3 PO (15:43)
[2020-05-01] MEDS ORDERED: PLAVIX75 MG PO (15:43)
[2020-05-01] MEDS ORDERED: ATROVENT 0.02%2.5 ML UPD (15:48)
--- NOTE | 2020-05-01 16:29 | NUR ---
LEFT UPPER ARM PICC REMOVED USING STERILE TECHNIQUE. PATIENT TOLERATED WELL.
--- NOTE | 2020-05-01 16:42 | MORECARE ---
CASE MANAGEMENT DISCHARGE SUMMARY PATIENT: MARIO ALBERTO IQBAL UNIT: [id number] ADM DATE: 04/20/20 AGE: 40 : 84 SEX: F ROOM/BED: D.4595 AUTHOR: BRANDI,DOC PHYSICIAN: REFERRING PHYSICIAN: LUPE MCCAIN M.D. DATE OF SERVICE: 05/01/20 Discharge Plan Patient Name: MARIO ALBERTO IQBAL Facility: [facility]:[place] : 1980 Planned Disposition: Anticipated Discharge Date: Discharge Date: Expected LOS: Initial Reviewer: [email or web address] Initial Review Date: 04/20/2020 Generated: 05/01/20 5:42 pm Comments DCP- Discharge Planning Updated by [email or web address]: Wilda Partida on 05/01/20 3:[address] CM received an order for a Nebulizer and meds. Patient is in agreement to purchasing a unit from [employer], with her cost $30-35.00. DCP- Discharge Planning Updated by [email or web address]: Mirna Mccartney on 04/25/20 9:[address] Patient Name: MARIO ALBERTO IQBAL Admission Status: Elective Accout number: [id number] Admission Date: 04-20-2020 : 1980 Admission Diagnosis:ATHSCL HEART DISEASE OF [place] COR ART W [facility] PCTRS Attending: LUPE MCCAIN Current LOS: 5 Anticipated DC Date: Planned Disposition: Primary Insurance: MEDICAID [place] PENDING Discharge Planning Comments: CM met with patient to complete initial dc planning assessment. CM educated patient on the CM role and verbal consent given by patient to complete assessment. Patient lives at home with family. Patient is independent. At discharge patient plans to return home and feels this is a safe discharge. CM discussed availability of home health, rehab services, and medical equipment. Patient will have family to transport home. Patient denied known discharge needs at this time. Uncertain of any d/c needs may need walk test for 02. CM will continue to follow and will assist as needed with dc plans/needs Supervisor Crack Off: Mirna Mccartney DCPIA - Discharge Planning Initial Assessment Updated by [email or web address]: Mirna Mccartney on 04/25/20 10:09 pm * Is the patient Alert and Oriented? Yes * How many steps to enter\exit or inside your home? * PCP NO PCP * Pharmacy [facility] * Preadmission Environment Home with Family * ADLs Independent * Equipment None * List name and contact numbers for known caregivers / representatives who currently or will assist patient after discharge: CARMELA LOPEZ -[facility]- [phone] * Verbal permission to speak to the caregivers and representatives has been obtained from the patient. Yes * Community resources currently utilized None * Additional services required to return to the preadmission environment? No * Can the patient safely return to the preadmission environment? Yes * Has this patient been hospitalized within the prior 30 days at any hospital? No Last DP export: 04/25/20 9:23 p Patient Name: MARIO ALBERTO IQBAL Page [id number] at 1642 All edits/amendments must be made on the electronic document DICTATION DATE: 05/01/201641 FOOT CASTER: MADINA 05/01/201641 RPT#: [id number] DC DATE: STATUS: ADM IN [facility] [address] [place] [address] END OF REPORT
--- NOTE | 2020-05-01 17:04 | MORECARE ---
CASE MANAGEMENT DISCHARGE SUMMARY PATIENT: MARIO ALBERTO IQBAL UNIT: [id number] ADM DATE: 04/20/20 AGE: 40 : 84 SEX: F ROOM/BED: D.1281 AUTHOR: BRANDI,DOC PHYSICIAN: REFERRING PHYSICIAN: LUPE MCCAIN M.D. DATE OF SERVICE: 05/01/20 Discharge Plan Patient Name: MARIO ALBERTO IQBAL Facility: [facility]:[place] : 1980 Planned Disposition: Anticipated Discharge Date: Discharge Date: Expected LOS: Initial Reviewer: [email or web address] Initial Review Date: 04/20/2020 Generated: 05/01/20 6:03 pm Comments DCP- Discharge Planning Updated by [email or web address]: Wilda Partida on 05/01/20 4:[address] CM received an order for a Nebulizer and meds. Patient is in agreement to purchasing a Nebulizer unit from [employer], with her cost $30-35.00, address and phone number provided. Patient denies the need for HHS, at this time. DCP- Discharge Planning Updated by [email or web address]: Mirna Mccartney on 04/25/20 9:[address] Patient Name: MARIO ALBERTO IQBAL Admission Status: Elective Accout number: [id number] Admission Date: 04-20-2020 : 1980 Admission Diagnosis:ATHSCL HEART DISEASE OF [place] COR ART W OT ANG PCTRS Attending: LUPE MCCAIN Current LOS: 5 Anticipated DC Date: Planned Disposition: Primary Insurance: MEDICAID [place] PENDING Discharge Planning Comments: CM met with patient to complete initial dc planning assessment. CM educated patient on the CM role and verbal consent given by patient to complete assessment. Patient lives at home with family. Patient is independent. At discharge patient plans to return home and feels this is a safe discharge. CM discussed availability of home health, rehab services, and medical equipment. Patient will have family to transport home. Patient denied known discharge needs at this time. Uncertain of any d/c needs may need walk test for 02. CM will continue to follow and will assist as needed with dc plans/needs Volleyball Coach: Mirna Mccartney DCPIA - Discharge Planning Initial Assessment Updated by [email or web address]: Mirna Mccartney on 04/25/20 10:09 pm * Is the patient Alert and Oriented? Yes * How many steps to enter\exit or inside your home? * PCP NO PCP * Pharmacy [facility] [place] * Preadmission Environment Home with Family * ADLs Independent * Equipment None * List name and contact numbers for known caregivers / representatives who currently or will assist patient after discharge: CARMELA LOPEZ -[facility]- [phone] * Verbal permission to speak to the caregivers and representatives has been obtained from the patient. Yes * Community resources currently utilized None * Additional services required to return to the preadmission environment? No * Can the patient safely return to the preadmission environment? Yes * Has this patient been hospitalized within the prior 30 days at any hospital? No Last DP export: 05/01/20 3:42 p Patient Name: MARIO ALBERTO IQBAL Page 37746 at 1704 All edits/amendments must be made on the electronic document DICTATION DATE: 05/01/201702 MATTRESS MAKER: MADINA 05/01/201702 RPT#: [id number] DC DATE: STATUS: ADM IN [facility] [address] [place] [address] END OF REPORT
--- NOTE | 2020-05-01 17:38 | NUR ---
PATIENT LEFT UNIT AT THIS TIME VIA WHEELCHAIR. NO DISTRESS UPON LEAVING UNIT. PATIENT DISCHARGED TO HOME WITH SPOUSE. NO DISTRESS. PATIENT VERBALIZED UNDERSTANDING OF ALL DISCHARGE INSTRUCTIONS PROVIDED.
--- NOTE | 2020-05-02 14:40 | MORECARE ---
CASE MANAGEMENT DISCHARGE SUMMARY PATIENT: MARIO ALBERTO IQBAL UNIT: [id number] ADM DATE: 04/20/20 AGE: 40 : 84 SEX: F ROOM/BED: D.8126 AUTHOR: BRANDI,DOC PHYSICIAN: REFERRING PHYSICIAN: LUPE MCCAIN M.D. DATE OF SERVICE: 05/02/20 Discharge Plan Patient Name: MARIO ALBERTO IQBAL Facility: [facility]:[place] : 1980 Planned Disposition: Anticipated Discharge Date: Discharge Date: 05/01/2020 Expected LOS: Initial Reviewer: [email or web address] Initial Review Date: 04/20/2020 Generated: 05/02/20 3:40 pm Comments DCP- Discharge Planning Updated by [email or web address]: Wilda Partida on 05/01/20 4:[address] CM received an order for a Nebulizer and meds. Patient is in agreement to purchasing a Nebulizer unit from [employer], with her cost $30-35.00, address and phone number provided. Patient denies the need for HHS, at this time. DCP- Discharge Planning Updated by [email or web address]: Mirna Mccartney on 04/25/20 9:[address] Patient Name: MARIO ALBERTO IQBAL Admission Status: Elective Accout number: [id number] Admission Date: 04-20-2020 : 1980 Admission Diagnosis:ATHSCL HEART DISEASE OF [place] COR ART W OTH ANG PCTRS Attending: LUPE MCCAIN Current LOS: 5 Anticipated DC Date: Planned Disposition: Primary Insurance: MEDICAID [place] PENDING Discharge Planning Comments: CM met with patient to complete initial dc planning assessment. CM educated patient on the CM role and verbal consent given by patient to complete assessment. Patient lives at home with family. Patient is independent. At discharge patient plans to return home and feels this is a safe discharge. CM discussed availability of home health, rehab services, and medical equipment. Patient will have family to transport home. Patient denied known discharge needs at this time. Uncertain of any d/c needs may need walk test for 02. CM will continue to follow and will assist as needed with dc plans/needs Motorsports Technician: Mirna Mccartney DCPIA - Discharge Planning Initial Assessment Updated by [email or web address]: Mirna Mccartney on 04/25/20 10:09 pm * Is the patient Alert and Oriented? Yes * How many steps to enter\exit or inside your home? * PCP NO PCP * Pharmacy [facility] [place] * Preadmission Environment Home with Family * ADLs Independent * Equipment None * List name and contact numbers for known caregivers / representatives who currently or will assist patient after discharge: CARMELA LOPEZ -[facility]- [phone] * Verbal permission to speak to the caregivers and representatives has been obtained from the patient. Yes * Community resources currently utilized None * Additional services required to return to the preadmission environment? No * Can the patient safely return to the preadmission environment? Yes * Has this patient been hospitalized within the prior 30 days at any hospital? No Last DP export: 05/01/20 4:04 p Patient Name: MARIO ALBERTO IQBAL Page 58544 at 1440 All edits/amendments must be made on the electronic document DICTATION DATE: 05/02/20 1440 SERVICING MANAGER: MADINA 05/02/20 1440 RPT#: [id number] DC DATE:05/01/20 STATUS: DIS IN [facility] [address] [place] [address] END OF REPORT
== END 2020-05-01 17:38 | disposition home or self-care (01) | DRG 233 ==
LOC: D.CATH 06:01 → D.CVICU 10:23 → D.M2 04-28 11:54
PROVIDERS: Emergency Medicine; Family Medicine; Internal Medicine Pulmonary Disease; Thoracic Surgery (Cardiothoracic Vascular Surgery); ADMIT Internal Medicine Cardiovascular Disease; ATTEND Internal Medicine Cardiovascular Disease
PROC: B2151ZZ Fluoroscopy of Left Heart using Low Osmolar Contrast (ICD-10-PCS; 2020-04-20)
PROC: 4A023N7 Measurement of Cardiac Sampling and Pressure, Left Heart, Percutaneous Approach (ICD-10-PCS; 2020-04-20)
PROC: B2111ZZ Fluoroscopy of Multiple Coronary Arteries using Low Osmolar Contrast (ICD-10-PCS; principal; 2020-04-20 08:00)
PROC: 02100Z9 Bypass Coronary Artery, One Artery from Left Internal Mammary, Open Approach (ICD-10-PCS; 2020-04-21)
PROC: 02100Z8 Bypass Coronary Artery, One Artery from Right Internal Mammary, Open Approach (ICD-10-PCS; 2020-04-21)
PROC: 5A1221Z Performance of Cardiac Output, Continuous (ICD-10-PCS; 2020-04-21)
PROC: B24BZZ4 Ultrasonography of Heart with Aorta, Transesophageal (ICD-10-PCS; 2020-04-21)
PROC: 5A1945Z Respiratory Ventilation, 24-96 Consecutive Hours (ICD-10-PCS; 2020-04-21)
PROC: 0BH17EZ Insertion of Endotracheal Airway into Trachea, Via Natural or Artificial Opening (ICD-10-PCS; 2020-04-21)
PROC: 05HY33Z Insertion of Infusion Device into Upper Vein, Percutaneous Approach (ICD-10-PCS; 2020-04-26)
DX: I25.118 Atherosclerotic heart disease of native coronary artery with other forms of angina pectoris (principal); G93.41 Metabolic encephalopathy; J15.212 Pneumonia due to Methicillin resistant Staphylococcus aureus; J98.11 Atelectasis; I10 Essential (primary) hypertension; D64.9 Anemia, unspecified; E78.5 Hyperlipidemia, unspecified; R06.89 Other abnormalities of breathing; R50.9 Fever, unspecified; R06.82 Tachypnea, not elsewhere classified; F41.9 Anxiety disorder, unspecified; R53.81 Other malaise

== ENCOUNTER → 2020-05-31 10:29 | Outpatient (CLI) | payer MEDICAID ==
[2020-04-21 09:21] VITALS: BMI 32.0
[~2020-05-31 10:29] MED LIST changes: +ATROVENT 0.02%2.5 ML UPD; +DILTIAZEM 24HR120 M3 PO; +ISOSORBIDE MONO30 M1 PO; +TOPROL XL50 MG PO
[2020-05-31 11:03] LABS: BASOPHILS 0.3 % (0-2); EOSINOPHILS 4.5 % (0-7); HEMATOCRIT 38.6 % (36.0-48.0); IMMATURE GRANULOCYTES 0.2 % (0-5); LYMPHOCYTES 48.2 % (15-50); MCH 25.2 pg (26.0-34.0); MCHC 31.1 g/dL (31.0-37.0); MCV 81.1 fL (80.0-100.0); MEAN PLATELET VOLUME 9.4 fL (7.4-10.4); MONOCYTES 9.5 % (2-11); NEUTROPHILS 37.3 % (40-80); PLATELET COUNT 253 10x3/uL (130-400); RBC 4.76 10x6/uL (4.00-5.40); RDW 15.5 % (11.5-14.5); WBC 6.5 10x3/uL (4.8-10.8)
[2020-05-31 11:17] LABS: CALC OSMOLALITY 269 mosm/kg (275-300); CALCIUM 9.3 mg/dL (8.5-10.1); CARBON DIOXIDE 27.4 mmol/L (21.0-32.0); CHLORIDE - SERUM 102 mmol/L (98-107); CREATININE - SERUM 0.6 mg/dL (0.6-1.3); GLUCOSE 104 mg/dL (74-106); POTASSIUM - SERUM 3.8 mmol/L (3.5-5.1); SODIUM 136 mmol/L (136-145); UREA NITROGEN 8 mg/dL (7-18); eGFR NON AFRICAN AMERICAN > 90 mL/min (90-120)
== END | disposition home or self-care (01) ==
LOC: D.LAB 10:29
PROVIDERS: ATTEND Thoracic Surgery (Cardiothoracic Vascular Surgery)
DX: Z95.1 Presence of aortocoronary bypass graft (principal)

== ENCOUNTER → 2020-07-12 09:48 | Outpatient (CLI) | payer MEDICAID ==
[2020-04-21 09:21] VITALS: BMI 32.0
== END | disposition home or self-care (01) ==
LOC: D.HCCECHO 09:48
PROVIDERS: ATTEND Internal Medicine Cardiovascular Disease
DX: I10 Essential (primary) hypertension (principal)

== ENCOUNTER → 2021-02-15 08:20 | Outpatient (CLI) | payer MEDICAID ==
[2020-04-21 09:21] VITALS: BMI 32.0
== END | disposition home or self-care (01) ==
LOC: D.LAB 08:20
PROVIDERS: ATTEND Internal Medicine Pulmonary Disease
DX: Z11.52 Encounter for screening for COVID-19 (principal)

== ENCOUNTER → 2021-02-21 09:22 | Outpatient (CLI) | payer MEDICAID ==
[2020-04-21 09:21] VITALS: BMI 32.0
== END | disposition home or self-care (01) ==
LOC: D.RT 09:22
PROVIDERS: ATTEND Internal Medicine Pulmonary Disease
DX: R06.09 Other forms of dyspnea (principal)